=== PATIENT | male | born 1950 | race Caucasian/White ===

== ENCOUNTER 2016-08-31 01:41 | Inpatient (IN) | payer BC ==
[~2016-08-31] VITALS: Ht 182.9 cm; Wt 110.0 kg
[~2016-08-31 01:41] MED LIST: AMLO-218 PO; CLON-379 PO; CLON1TAB3 PO; DOXA2TAB PO; FENO134C PO; FURO20TA3 PO; MECL12.574 PO; METF-382 PO; OLME40TA14 PO; PHEN100C PO; SITA100T8 PO; TEN25 PO; VALS160T20 PO
[2016-08-31] MEDS ORDERED: ASPIRIN 325 MG TAB PO STA (06:30)
[2016-08-31 07:05] VITALS: TEMP 97.8
--- NOTE | 2016-08-31 07:10 | RADRPT ---
PROCEDURE: XR Chest. CLINICAL INDICATION: Chest pain TECHNIQUE: Single view of the chest COMPARISON: Chest radiograph June 07, 2015 FINDINGS: There is mild left basilar atelectasis without focal consolidation. The heart size is normal. There is no pleural effusion. There is no pneumothorax. There is no acute osseous abnormality. IMPRESSION: 1. Mild left basilar atelectasis without focal consolidation. RPTAT: UU .Neno Storm MD, MD Date Time Electronically viewed and signed by .Neno Storm MD, MD on 08/31/2016 07:10 .K/
[2016-08-31 07:46] LABS: INR 0.93; PROTIME 12.5 Sec (12.2-14.2)
[2016-08-31 07:46] LABS: CHLORIDE 101 mmol/L (97-110)
[2016-08-31 07:47] LABS: ALBUMIN 4.2 g/dl (3.3-4.9); SODIUM 146 mmol/L (135-144)
[2016-08-31 07:47] LABS: PARTIAL THROMBOPLASTIN TIME 32.3 Sec (25.0-35.0)
[2016-08-31 07:50] LABS: ALANINE AMINOTRANSFERASE 26 IU/L (13-69); ALBUMIN/GLOBULIN RATIO 1.23; ALKALINE PHOSPHATASE 83 IU/L (42-121); ANION GAP 18 (8-16); ASPARTATE AMINO TRANSFERASE 18 IU/L (15-46); BILIRUBIN,INDIRECT 0.1 mg/dl (0-1.1); BILIRUBIN,TOTAL 0.1 mg/dl (0.2-1.3); BLOOD UREA NITROGEN 16 mg/dl (7-20); CARBON DIOXIDE 31 mmol/L (21-31); CREATININE 0.85 mg/dl (0.61-1.24); GLUCOSE 135 mg/dl (70-220); TOTAL PROTEIN 7.6 g/dl (6.1-8.1)
[2016-08-31 07:51] LABS: CALCIUM 9.2 mg/dl (8.4-10.2)
[2016-08-31 07:57] LABS: HEMATOCRIT 46.8 % (42.0-52.0); HEMOGLOBIN 15.9 g/dl (14.0-18.0); MEAN CORPUSCULAR HEMOGLOBIN 28.8 pg (29.0-33.0); MEAN CORPUSCULAR VOLUME 84.8 fl (82.0-101.0); PLATELET COUNT 262 10^3/UL (140-440); RED BLOOD COUNT 5.52 10^6/ul (4.70-6.10); RED CELL DISTRIBUTION WIDTH 12.9 % (11.5-14.5); UNCORRECTED WBC 7.3 10^3/ul (4.8-10.8); WHITE BLOOD COUNT 7.3 10^3/ul (4.8-10.8)
[2016-08-31 07:58] LABS: EOSINOPHILS % 3.6 % (0.0-7.0); LYMPHOCYTES % 32.4 % (15.0-51.0); MEAN PLATELET VOLUME 8.9 fl (7.4-10.4); MONOCYTES % 6.6 % (0.0-11.0); NEUTROPHILS % 56.8 % (39.0-77.0)
[2016-08-31 07:59] LABS: BASOPHILS % 0.5 % (0.0-2.0); EOSINOPHILS # 0.3 10^3/ul (0.0-0.5); LYMPHOCYTES # 2.4 10^3/ul (0.8-2.9); MONOCYTE # 0.5 10^3/ul (0.3-0.9); NEUTROPHIL # 4.1 10^3/ul (1.6-7.5)
[2016-08-31 08:02] LABS: TROPONIN-I < 0.012 ng/ml (0.00-0.12)
--- NOTE | 2016-08-31 08:12 | ERA ---
ER Documentation Chief Complaint Date/Time DATE: 08/31/16 TIME: 08:10 Chief Complaint pressure like chest pain radaiting to throat and left arm HPI 66-year-old male presents to the emergency department with his family complaining of discomfort in his chest and throat that began spontaneously and was non-provoked. It radiated towards his left arm. He described no palpitations, shortness of breath, fevers chills or hemoptysis associated with the pain. The pain was nonexertional and occurred at rest. Currently he reports the pain is mild to moderate. ROS All systems reviewed and are negative except as per history of present illness. Medications Home Meds Active Scripts Meclizine Hcl* (Antivert*) 12.5 Mg Tab, 12.5 MG PO Q6H Y for DIZZINESS, #20 TAB Prov:SHAD VASQUEZ MD 06/02/16 Olmesartan Medoxomil (Benicar) 40 Mg Tablet, 40 MG PO DAILY, #30 TAB Prov:LAURA LEÓN DO 01/16/16 Amlodipine Besylate* (Norvasc*) 10 Mg Tablet, 10 MG PO DAILY, #30 TAB Prov:LUARA LEÓN DO 01/16/16 Reported Medications Fenofibrate, Micronized (Fenofibrate) 134 Mg Capsule, 134 MG PO DAILY, CAP 01/16/16 Furosemide* (Furosemide*) 20 Mg Tablet, 20 MG PO DAILY, #60 TAB 01/16/16 Doxazosin Mesylate* (Doxazosin Mesylate*) 2 Mg Tablet, 2 MG PO HS, TAB 01/16/16 Metformin Hcl* (Metformin Hcl*) 500 Mg Tablet, 500 MG PO WITH BREAKFAST DINNE, # 30 TAB 01/16/16 Sitagliptin* (Januvia*) 100 Mg Tablet, 100 MG PO DAILY, #30 TAB 01/16/16 Clonazepam* (Clonazepam*) 1 Mg Tablet, 1 MG PO DAILY Y for ANXIETY, TAB 01/16/16 Phenytoin* Sodium Extended (Dilantin*) 100 Mg Capsule, 100 MG PO TID, CAP 02/22/14 Atenolol (Tenormin) 25 Mg Tab, 25 MG PO, TAB 02/22/14 Clonidine Hcl* (Clonidine Hcl*) 0.1 Mg Tab, 0.1 MG PO Q8, TAB 02/22/14 Valsartan* (Diovan*) 160 Mg Tablet, 160 MG PO DAILY, TAB 02/22/14 Allergies Allergies: Coded Allergies: No Known Allergy (Unverified , 01/16/16) PMhx/Soc History of Surgery: Yes (cholesystectomy) Anesthesia Reaction: No Hx Neurological Disorder: No Hx Respiratory Disorders: No Hx Cardiac Disorders: Yes (htn, hyperlipidemia) Hx Psychiatric Problems: No Hx Miscellaneous Medical Probl: Yes (HTN, DM, SEIZURE) Hx Alcohol Use: No Hx Substance Use: No Hx Tobacco Use: Yes (1 pack/day) Smoking Status: Current every day smoker FmHx Noncontributory for chief complaint Physical Exam Vitals Vital Signs Date Time Temp Pulse Resp B/P Pulse Ox O2 Delivery O2 Flow Rate FiO2 08/31/16 07:05 97.8 72 18 178/100 97 Room Air 08/31/16 06:50 Nasal Cannula 2 08/31/16 01:50 97.8 89 20 147/89 97 Physical Exam GENERAL: The patient is well developed and appropriate for usual state of health in no apparent distress HEENT: Pupils equal, round, and reactive to light. EOMI. There is no scleral icterus. NECK: C-spine is soft and supple, there is no meningismus. There is no cervical lymphadenopathy. LUNGS: Clear to auscultation bilaterally. There are no rales, wheezes or rhonchi. HEART: Regular rate and rhythm, no murmurs, clicks, rubs or gallops. ABDOMEN: Soft, non-tender, non-distended. There are bowel sounds in all four quadrants. No rebound or guarding. EXTREMITIES: There is no peripheral cyanosis or edema. No focal swelling or erythema. NEURO: The patient moves all four extremities with 5/5 strength. Cranial nerves II - XII are intact. Normal gait. Alert and oriented SKIN: There is no apparent rash or petechiae. HEME/LYMPHATIC: There is no evidence of excessive bruising or lymphedema. PSYCHIATRIC: The patient does not appear anxious or depressed. Result Diagram: 08/31/16 0650 08/31/16 0650 Results 24 hrs Laboratory Tests Test 08/31/16 06:50 08/31/16 06:56 Alanine Aminotransferase (ALT/SGPT) 26IU/L Albumin 4.2g/dl Albumin/Globulin Ratio 1.23 Alkaline Phosphatase 83IU/L Anion Gap 18 Aspartate Amino Transf (AST/SGOT) 18IU/L Basophils # 0.010^3/ul Basophils % 0.5% Blood Urea Nitrogen 16mg/dl Calcium Level 9.2mg/dl Carbon Dioxide Level 31mmol/L Chloride Level 101mmol/L Creatinine 0.85mg/dl Direct Bilirubin 0.00mg/dl Eosinophils # 0.310^3/ul Eosinophils % 3.6% Globulin 3.40g/dl Glucose Level 135mg/dl Hematocrit 46.8% Hemoglobin 15.9g/dl Indirect Bilirubin 0.1mg/dl Lymphocytes # 2.410^3/ul Lymphocytes % 32.4% Mean Corpuscular Hemoglobin 28.8pg Mean Corpuscular Hemoglobin Concent 34.0g/dl Mean Corpuscular Volume 84.8fl Mean Platelet Volume 8.9fl Monocytes # 0.510^3/ul Monocytes % 6.6% Neutrophils # 4.110^3/ul Neutrophils % 56.8% Nucleated Red Blood Cells # 0.010^3/ul Nucleated Red Blood Cells % 0.0/100WBC Platelet Count 62584^3/UL Potassium Level 4.0mmol/L Red Blood Count 5.5210^6/ul Red Cell Distribution Width 12.9% Sodium Level 146mmol/L Total Bilirubin 0.1mg/dl Total Protein 7.6g/dl Troponin I < 0.012ng/ml White Blood Count 7.310^3/ul Activated Partial Thromboplast Time 32.3Sec INR International Normalized Ratio 0.93 Prothrombin Time 12.5Sec Prothrombin Time Ratio 1.0 Current Medications Medications (Trade) Dose Ordered Sig/Yaya Route PRN Reason Start Time Stop Time Status Last Admin Dose Admin Aspirin (Aspirin) 325 mg ONCE STAT PO 08/31/16 06:30 08/31/16 06:31 DC 08/31/16 06:53 Procedures/MDM Patient was taken to a room, seen and evaluated. Comfort measures were initiated. Diagnostic tests were ordered and reviewed. 3 LEAD RHYTHM STRIP: Normal sinus rhythm without ectopy EK lead EKG reviewed by myself: Normal Sinus Rhythm Normal Caroleen and intervals No ST elevation, depression, or T wave inversion Impression: Normal EKG RADIOLOGY: reviewed with the radiologist CONSULTATION: IPA hospitalist was notified for admission REEVALUATION: Patient remained comfortable. His blood pressure remained elevated and this was treated with his normal medications. MEDICAL DECISION MAKING: Patient presents with chest pain of uncertain etiology. Differential diagnosis considered includes acute myocardial infarction , pulmonary embolism, as well as vascular and pulmonary concerns. I have reviewed the patient's clinical risk factors, EKG, lab studies and imaging. At this time, patient shows no clinical evidence of significant thoracic concerns. However, he has significant risk factors for heart disease including high blood pressure and diabetes. Given these high risk factors, patient will require admission to the hospital for observation to formally rule out myocardial infarction. Departure Diagnosis: Primary Impression: Chest pain Additional Impression: Hypertension Condition: JOSESITO Yousif Aug 31, 2016 08:12
[2016-08-31] MEDS ORDERED: ATENOLOL 50 MG TAB PO ONE (08:30)
[2016-08-31] MEDS ORDERED: LORA10TA3 PO (10:15)
[2016-08-31] MEDS ORDERED: ASPI-664 PO (10:15)
[2016-08-31] MEDS ORDERED: TAMS-14 PO (10:15)
[2016-08-31] MEDS ORDERED: AMLO-147 PO (10:16)
[2016-08-31] MEDS ORDERED: ATEN-51 PO (10:16)
[2016-08-31] MEDS ORDERED: HYD25 PO (10:17)
[2016-08-31] MEDS ORDERED: CLON0.5T4 PO (10:18)
[2016-08-31] MEDS ORDERED: MAG PO (10:19)
[2016-08-31] MEDS ORDERED: PHEN100C PO (10:19)
[2016-08-31] MEDS ORDERED: ERGO500037 PO (10:20)
[2016-08-31] MEDS ORDERED: CLON0.2T5 PO (10:21)
[2016-08-31] MEDS ORDERED: GLYB2.5T2 PO (10:21)
[2016-08-31] MEDS ORDERED: AMIO200T2 PO (10:22)
[2016-08-31] MEDS ORDERED: GLUCOSE GEL 15 GRAM TUBE PO PRN ×2 (11:30)
[2016-08-31] MEDS ORDERED: NACL 0.9% 3 ML SYG IV SCH (11:30)
[2016-08-31] MEDS ORDERED: DEXTROSE 50% 50 ML SYRINGE IV PRN ×2 (11:30)
[2016-08-31] MEDS ORDERED: clonAZEPAM 0.5 MG TAB PO PRN (11:30)
[2016-08-31] MEDS ORDERED: morphine 2 MG INJ IV PRN (11:30)
[2016-08-31] MEDS ORDERED: ONDANSETRON 4 MG INJ IV PRN (11:30)
[2016-08-31] MEDS ORDERED: ACETAMINOPHEN 325 MG TAB PO PRN (11:30)
[2016-08-31] MEDS ORDERED: GLUCAGON 1 MG INJ IM PRN (11:30)
[2016-08-31] MEDS ORDERED: GLUCOSE GEL 15 GRAM TUBE BUCCAL PRN (11:30)
[2016-08-31] MEDS: INSULIN ASPART [NOVOLOG] 3 ML PEN SC SCH ×3 (12:00→21:00)
[2016-08-31 12:48] LABS: CREATINE KINASE 75 IU/L (23-200)
[2016-08-31 12:59] LABS: CK-MB 1.16 ng/ml (0.0-2.4)
[2016-08-31 13:04] LABS: TROPONIN-I < 0.012 ng/ml (0.00-0.12)
--- NOTE | 2016-08-31 13:51 | HP ---
Date/Time of Note Date/Time of Note DATE: 08/31/16 TIME: 13:49 Assessment/Plan VTE Prophylaxis VTE Prophylaxis Intervention: LMWH Lines/Catheters IV [facility] Type (from [email or web address] Saline Lock Assessment/Plan Chief Complaint/Hosp Course 1) chest pain - rule out acute coronary syndrome - 2D echocardiogram - consult cardiology 2) diabetes - monitor blood sugar Problems: HPI/ROS Admit Date/Time Admit Date/Time Hx of Present Illness Patient with hypertension, hypercholesterolemia, diabetes mellitus comes in with chest pain that started one day prior. Patient states he has been having upper respiratory symptoms with sore throat and that the symptoms seemed to travel to his chest despite starting antibiotics per his primary care physician. Patient was concerned and so he came into the emergency room. PMH/Family/Social Past Medical History Medical History: diabetes, high cholesterol, hypertension Social History Alcohol Use: rarely Smoking Status: Current every day smoker Exam/Review of Systems Vital Signs Vitals Vital Signs Date Time Temp Pulse Resp B/P Pulse Ox O2 Delivery O2 Flow Rate FiO2 08/31/16 12:00 61 13 158/89 Room Air 08/31/16 09:00 98 08/31/16 07:05 97.8 08/31/16 06:50 2 Exam Constitutional: well developed Head: atraumatic, normocephalic Neck: supple Respiratory: clear to auscultation Cardiovascular: regular rate and rhythm Gastrointestinal: non-tender, soft Labs Result Diagram: 08/31/16 0650 08/31/16 0650 Medications Medications Current Medications Amiodarone HCl (Cordarone) 200 mg BID PO ; Start 08/31/16 at 21:00 Amlodipine Besylate (Norvasc) 10 mg DAILY PO ; Start 09/01/16 at 09:00 Atenolol (Tenormin) 25 mg BID PO ; Start 08/31/16 at 21:00 Clonazepam (Klonopin) 0.5 mg DAILY PRN PO ANXIETY; Start 08/31/16 at 11:30 Clonidine (Catapres) 0.2 mg DAILY PRN PO ELEVATED BLOOD PRESSURE; Start at 11:30; Status UNV Ergocalciferol (Drisdol) 50,000 unit DAILY PO ; Start 09/01/16 at 09:00; Status UNV Hydrochlorothiazide (Hydrochlorothiazide) 25 mg DAILY PO ; Start 09/01/16 at 09: 00 Loratadine (Claritin) 10 mg DAILY PO ; Start 09/01/16 at 09:00 Phenytoin (Dilantin) 100 mg QID PO ; Start 08/31/16 at 13:00 Tamsulosin HCl (Flomax) 0.4 mg QHS PO ; Start 08/31/16 at 21:00 Ondansetron HCl (Zofran Inj) 4 mg Q6H PRN IV NAUSEA AND/OR VOMITING; Start 08/31 at 11:30 Aspirin (Aspirin) 81 mg DAILY PO ; Start 09/01/16 at 09:00 Acetaminophen (Tylenol Tab) 650 mg Q6H PRN PO PAIN LEVEL 1-3 OR FEVER; Start at 11:30 Morphine Sulfate (morphine) 2 mg Q4H PRN IV PAIN LEVEL 7-10; Start 08/31/16 at 11:30 Famotidine (Pepcid Iv) 20 mg Q12 IV ; Start 08/31/16 at 21:00 Enoxaparin Sodium (Lovenox) 30 mg DAILY SC ; Start 09/01/16 at 09:00 Miscellaneous Information 1 ea NOTE XX ; Start 08/31/16 at 11:30 Glucose (Glutose) 15 gm Q15M PRN PO DECREASED GLUCOSE; Start 08/31/16 at 11:30 Glucose (Glutose) 22.5 gm Q15M PRN PO DECREASED GLUCOSE; Start 08/31/16 at 11:30 Dextrose (D50w Syringe) 25 ml Q15M PRN IV DECREASED GLUCOSE; Start 08/31/16 at 11:30 Dextrose (D50w Syringe) 50 ml Q15M PRN IV DECREASED GLUCOSE; Start 08/31/16 at 11:30 Glucagon (Glucagen) 1 mg Q15M PRN IM DECREASED GLUCOSE; Start 08/31/16 at 11:30 Glucose (Glutose) 15 gm Q15M PRN BUCCAL DECREASED GLUCOSE; Start 08/31/16 at 11: 30 COOKIE MEYER Aug 31, 2016 13:51
[2016-08-31] MEDS: PHENYTOIN 100 MG CAP PO SCH ×3 (16:26→21:44)
[2016-08-31 19:56] VITALS: BP 160/80; PULSE 66; RESP 20
[2016-08-31 20:00] VITALS: BP 164/83; RESP 19
[2016-08-31 20:01] VITALS: Ht 182.9 cm; Wt 110.0 kg
[2016-08-31 20:10] VITALS: PULSE 63
[2016-08-31] MEDS: TAMSULOSIN (SR) 0.4 MG CAP PO SCH (20:25)
[2016-08-31] MEDS: AMIODARONE 200 MG TAB PO SCH (20:25)
[2016-08-31] MEDS: FAMOTIDINE 20 MG INJ IV SCH (20:25)
[2016-08-31] MEDS: ATENOLOL 25 MG TAB PO SCH (20:26)
[2016-08-31] MEDS: metFORMIN 500 MG TAB PO SCH (20:32)
[2016-08-31] MEDS ORDERED: glyBURIDE 2.5 MG TAB PO SCH (21:00)
[2016-08-31 21:53] LABS: CK-MB 0.95 ng/ml (0.0-2.4)
[2016-08-31 21:55] LABS: TROPONIN-I 0.014 ng/ml (0.00-0.12)
[2016-09-01] VITALS (14 sets, daily range): BP systolic 131–166; BP diastolic 63–85; PULSE 54–68; RESP 16–19
[2016-09-01 06:46] LABS: BASOPHILS % 0.6 % (0.0-2.0); EOSINOPHILS # 0.2 10^3/ul (0.0-0.5); EOSINOPHILS % 2.9 % (0.0-7.0); HEMATOCRIT 46.1 % (42.0-52.0); HEMOGLOBIN 15.6 g/dl (14.0-18.0); LYMPHOCYTES # 1.6 10^3/ul (0.8-2.9); LYMPHOCYTES % 23.4 % (15.0-51.0); MEAN CORPUSCULAR HEMOGLOBIN 29.2 pg (29.0-33.0); MEAN CORPUSCULAR HGB CONC 33.7 g/dl (32.0-37.0); MEAN CORPUSCULAR VOLUME 86.6 fl (82.0-101.0); MEAN PLATELET VOLUME 7.2 fl (7.4-10.4); MONOCYTE # 0.4 10^3/ul (0.3-0.9); MONOCYTES % 6.3 % (0.0-11.0); NEUTROPHIL # 4.5 10^3/ul (1.6-7.5); NEUTROPHILS % 66.8 % (39.0-77.0); PLATELET COUNT 243 10^3/UL (140-440); RED BLOOD COUNT 5.33 10^6/ul (4.70-6.10); RED CELL DISTRIBUTION WIDTH 13.8 % (11.5-14.5); UNCORRECTED WBC 6.7 10^3/ul (4.8-10.8); WHITE BLOOD COUNT 6.7 10^3/ul (4.8-10.8)
[2016-09-01 06:48] LABS: CONDITION 1
[2016-09-01] MEDS: INSULIN ASPART [NOVOLOG] 3 ML PEN SC SCH ×5 (07:25→21:00)
[2016-09-01 07:38] LABS: ALBUMIN 3.8 g/dl (3.3-4.9)
[2016-09-01 07:39] LABS: POTASSIUM 3.9 mmol/L (3.5-5.1)
[2016-09-01 07:41] LABS: ALBUMIN/GLOBULIN RATIO 1.15; BILIRUBIN,INDIRECT 0.3 mg/dl (0-1.1); BILIRUBIN,TOTAL 0.3 mg/dl (0.2-1.3); CREATININE 0.81 mg/dl (0.61-1.24); TOTAL PROTEIN 7.1 g/dl (6.1-8.1)
[2016-09-01 07:42] LABS: CALCIUM 8.9 mg/dl (8.4-10.2); CHOL/HDL RATIO 9.2 RATIO
[2016-09-01] MEDS ORDERED: ERGOCALCIFEROL 50,000 UNIT CAP PO SCH (09:00)
[2016-09-01] MEDS ORDERED: ASPIRIN (EC) 81 MG TAB PO SCH (09:00)
[2016-09-01] MEDS: PHENYTOIN 100 MG CAP PO SCH ×4 (09:12→21:24)
[2016-09-01] MEDS: HYDROCHLOROTHIAZIDE 25 MG TAB PO SCH (09:13)
[2016-09-01] MEDS: AMLODIPINE 10 MG TAB PO SCH (09:13)
[2016-09-01] MEDS: ASPIRIN 81 MG TAB PO SCH (09:14)
[2016-09-01] MEDS: AMIODARONE 200 MG TAB PO SCH ×2 (09:14→21:23)
[2016-09-01] MEDS: LORATADINE 10 MG TAB PO SCH (09:14)
[2016-09-01] MEDS: ATENOLOL 25 MG TAB PO SCH ×2 (09:14→21:24)
[2016-09-01] MEDS: FAMOTIDINE 20 MG INJ IV SCH (09:16)
[2016-09-01] MEDS: ENOXAPARIN 30 MG/0.3 ML SYG SC SCH (09:16)
[2016-09-01] MEDS: metFORMIN 500 MG TAB PO SCH ×2 (09:20→17:32)
--- NOTE | 2016-09-01 11:25 | PN ---
Date/Time of Note Date/Time of Note DATE: 09/01/16 TIME: 11:24 Assessment/Plan VTE Prophylaxis VTE Prophylaxis Intervention: LMWH Lines/Catheters IV [facility]ter Type (from [facility]): Saline Lock Urinary Cath still in place: No Assessment/Plan Chief Complaint/Hosp Course 1) chest pain - acute coronary syndrome ruled out by negative troponins - 2D echocardiogram - await consult cardiology 2) diabetes - monitor blood sugar Problems: Subjective 24 Hr Interval Summary Free Text/Dictation Patient denies any further chest pain Exam/Review of Systems Vital Signs Vitals Vital Signs Date Time Temp Pulse Resp B/P Pulse Ox O2 Delivery O2 Flow Rate FiO2 09/01/16 11:10 97.8 67 18 140/73 97 09/01/16 05:10 Room Air 08/31/16 06:50 2 Intake and Output 08/31/16 08/31/16 09/01/16 15:00 23:00 07:00 Intake Total 300 ml Output Total 500 ml Balance -200 ml Exam Constitutional: well developed Head: atraumatic, normocephalic Neck: supple Respiratory: clear to auscultation Cardiovascular: regular rate and rhythm Gastrointestinal: non-tender, soft Results Result Diagram: 09/01/16 0606 09/01/16 0606 Results 24 hrs Laboratory Tests Test 08/31/16 12:30 08/31/16 20:23 08/31/16 20:59 09/01/16 06:06 Creatine Kinase 75 68 Creatine Kinase Index 1.5 1.4 Creatinine Kinase MB (Mass) 1.16 0.95 Troponin I < 0.012 0.014 Bedside Glucose 120 B-Type Natriuretic Peptide 171 H Alanine Aminotransferase (ALT/SGPT) 29 Albumin 3.8 Albumin/Globulin Ratio 1.15 Alkaline Phosphatase 77 Anion Gap 14 Aspartate Amino Transf (AST/SGOT) 19 Basophils # 0.0 Basophils % 0.6 Blood Morphology Comment Blood Urea Nitrogen 14 Calcium Level 8.9 Carbon Dioxide Level 29 Chloride Level 102 Cholesterol Level 232 H Cholesterol/HDL Ratio 9.2 Creatinine 0.81 Direct Bilirubin 0.00 Eosinophils # 0.2 Eosinophils % 2.9 Globulin 3.30 H Glucose Level 145 HDL Cholesterol 25 L Hematocrit 46.1 Hemoglobin 15.6 Hemoglobin A1c 7.3 H Indirect Bilirubin 0.3 LDL Cholesterol, Calculated 167 Lymphocytes # 1.6 Lymphocytes % 23.4 Mean Corpuscular Hemoglobin 29.2 Mean Corpuscular Hemoglobin Concent 33.7 Mean Corpuscular Volume 86.6 Mean Platelet Volume 7.2 L Monocytes # 0.4 Monocytes % 6.3 Neutrophils # 4.5 Neutrophils % 66.8 Nucleated Red Blood Cells # 0.0 Nucleated Red Blood Cells % 0.0 Platelet Count 243 Potassium Level 3.9 Red Blood Count 5.33 Red Cell Distribution Width 13.8 Sodium Level 141 Total Bilirubin 0.3 Total Protein 7.1 Triglycerides Level 198 H White Blood Count 6.7 Test 09/01/16 07:21 Bedside Glucose 144 Medications Medications Current Medications Amiodarone HCl (Cordarone) 200 mg BID PO Last administered on 09/01/16 09:14; Admin Dose 200 MG; Start 08/31/16 at 21:00 Amlodipine Besylate (Norvasc) 10 mg DAILY PO Last administered on 09/01/16 09: 13; Admin Dose 10 MG; Start 09/01/16 at 09:00 Atenolol (Tenormin) 25 mg BID PO Last administered on 09/01/16 09:14; Admin Dose 25 MG; Start 08/31/16 at 21:00 Clonazepam (Klonopin) 0.5 mg DAILY PRN PO ANXIETY; Start 08/31/16 at 11:30 Hydrochlorothiazide (Hydrochlorothiazide) 25 mg DAILY PO Last administered on 09:13; Admin Dose 25 MG; Start 09/01/16 at 09:00 Loratadine (Claritin) 10 mg DAILY PO Last administered on 09/01/16 09:14; Admin Dose 10 MG; Start 09/01/16 at 09:00 Phenytoin (Dilantin) 100 mg QID PO Last administered on 09/01/16 09:12; Admin Dose 100 MG; Start 08/31/16 at 13:00 Tamsulosin HCl (Flomax) 0.4 mg QHS PO Last administered on 08/31/16 20:25; Admin Dose 0.4 MG; Start 08/31/16 at 21:00 Ondansetron HCl (Zofran Inj) 4 mg Q6H PRN IV NAUSEA AND/OR VOMITING; Start 08/31 at 11:30 Aspirin (Aspirin) 81 mg DAILY PO Last administered on 09/01/16 09:14; Admin Dose 81 MG; Start 09/01/16 at 09:00 Acetaminophen (Tylenol Tab) 650 mg Q6H PRN PO PAIN LEVEL 1-3 OR FEVER; Start at 11:30 Morphine Sulfate (morphine) 2 mg Q4H PRN IV PAIN LEVEL 7-10; Start 08/31/16 at 11:30 Famotidine (Pepcid Iv) 20 mg Q12 IV Last administered on 09/01/16 09:16; Admin Dose 20 MG; Start 08/31/16 at 21:00 Enoxaparin Sodium (Lovenox) 30 mg DAILY SC Last administered on 09/01/16 09:16 ; Admin Dose 30 MG; Start 09/01/16 at 09:00 Miscellaneous Information 1 ea NOTE XX ; Start 08/31/16 at 11:30 Glucose (Glutose) 15 gm Q15M PRN PO DECREASED GLUCOSE; Start 08/31/16 at 11:30 Glucose (Glutose) 22.5 gm Q15M PRN PO DECREASED GLUCOSE; Start 08/31/16 at 11:30 Dextrose (D50w Syringe) 25 ml Q15M PRN IV DECREASED GLUCOSE; Start 08/31/16 at 11:30 Dextrose (D50w Syringe) 50 ml Q15M PRN IV DECREASED GLUCOSE; Start 08/31/16 at 11:30 Glucagon (Glucagen) 1 mg Q15M PRN IM DECREASED GLUCOSE; Start 08/31/16 at 11:30 Glucose (Glutose) 15 gm Q15M PRN BUCCAL DECREASED GLUCOSE; Start 08/31/16 at 11: 30 Clonidine (Catapres) 0.2 mg DAILY PO Last administered on 09/01/16 09:13; Admin Dose 0.2 MG; Start 08/31/16 at 18:30 COOKIE MEYER Sep 01, 2016 11:25
--- NOTE | 2016-09-01 19:06 | CONS ---
DATE OF ADMISSION: 08/31/2016 DATE OF CONSULTATION: 08/31/2016 REASON FOR CONSULTATION: Chest pain. HISTORY OF PRESENT ILLNESS: The patient is a 66-year-old gentleman who complains of epigastric ches t pain radiating all the way to the throat. Denies any shortness of breath, dizziness or syncope, b ut does complain of occasional dizziness and palpitation. Denies any nausea or vomiting. Denies fe fernie, chills, or rigors. No prior history of myocardial infarction. PAST MEDICAL HISTORY: Significant for: 1. Obesity. 2. Hypertension. 3. Dyslipidemia. 4. Diabetes mellitus. ALLERGIES: NONE. CURRENT MEDICATIONS: 1. Norvasc. 2. Hydrochlorothiazide. 3. Aspirin. 4. Lovenox. 5. Amiodarone. 6. Atenolol. 7. Tamsulosin. 8. Famotidine. 9. Clonidine. 10. Metformin. 11. Phenytoin. 12. Insulin. SOCIAL HISTORY: Denies any smoking, alcohol, or recreational drugs. REVIEW OF SYSTEMS: Unremarkable except as mentioned in the HPI. PHYSICAL EXAMINATION: VITAL SIGNS: Temperature is 97.6, heart rate of 62, blood pressure 160/80 mmHg, breathing at 18 and saturating 94% on room air. GENERAL: Awake, alert, and oriented, in no apparent distress. NECK: No JVD or carotid bruit. DIAGNOSTIC DATA: EKG shows normal sinus rhythm with a ventricular rate of 88 beats per minute with normal ID, normal QRS and normal QT intervals with no acute ST or T-wave changes. Chest x-ray shows no congestion or infiltrates. LABORATORY DATA: WBC 6.7, hemoglobin is 15.6, hematocrit 46 with a platelet of 243. BNP 171. Trop onin x3 is negative. Triglyceride 198. Total cholesterol 232, LDL 167, HDL 25. ASSESSMENT AND PLAN: A 66-year-old gentleman with atypical chest pain with significant cardiac risk factors. RECOMMENDATIONS: 1. Echocardiogram. 2. Recommend Lexiscan to rule out for reversible ischemia. 3. Continue atenolol. 4. Continue amlodipine, hydrochlorothiazide and clonidine for blood pressure. 5. Continue amiodarone. 6. Continue insulin. 7. Further recommendation after review of the echocardiogram and stress test. Dictated By: KAYLYN KOEHLER MD SR/NTS Conf#: [id number] DID#: [id number]
--- NOTE | 2016-09-01 19:24 | RADRPT ---
Echocardiogram Report Patient Name: MARILOU JUSTIN Gender: Male Date: 1950 Study Date: 01-Sep-2016 Licensed Direct Entry Midwife: RAFAEL Location: I Ref. Physician: BILL HUTTON Quality: Adequate Procedures: Transthoracic echocardiogram with complete 2D, M-Mode, and doppler examination. Indications: Chest Pain. 2D/M Mode Doppler Measurement Value Normal Ranges Measurement Value Normal Ranges AoR Diam MM 3.7 cm AV Peak Paulo 1.3 m/sec LVIDd 2D 5.2 3.5 - 5.6 cm AV Peak PG 7.0 mmHg LVIDs 2D 4.2 2.1 - 4.1 cm AI Peak PG 74.0 mmHg LVPWd 2D 0.8 0.6 - 1.1 cm AI Peak Paulo 4.3 m/sec IVSd 2D 1.2 0.6 - 1.1 cm AI PHT 705.0 msec EDV 2D 128.8 cm3 LVOT Peak Paulo 0.8 m/sec ESV 2D 72.8 cm3 LVOT Peak PG 2.8 mmHg LA Dimen 2D 3.8 2.3 - 4.0 cm MV E Peak Paulo 0.9 m/sec MV A Peak Paulo 1.2 m/sec MV E/A 0.8 MV Decel Time 235 msec MV Decel Mccracken 4 MV E/A 0.8 TR Peak Paulo 2.3 m/sec TR Peak PG 21.3 mmHg PV Peak Paulo 0.9 m/sec PV Peak PG 3.0 mmHg RVSP 24.3 mmHg Findings Left Ventricle: Normal left ventricular systolic function. Normal left ventricular cavity size. Mild hypertrophy of the basal septum. Ejection fraction is visually estimated at 50 %. Tissue Doppler/Mitral Doppler indices are within normal limits. Right Ventricle: Normal right ventricular size. Normal right ventricular systolic function. Left Atrium: The left atrium is normal in size. Right Atrium: The right atrium is normal in size. Atrial Septum: Normal atrial septum. Mitral Valve: Normal appearance of the mitral valve. Trace mitral regurgitation. Aortic Valve: No hemodynamically significant aortic stenosis by doppler. Aortic sclerosis without stenosis. Mild aortic valve regurgitation. Tricuspid Valve: Normal appearance of the tricuspid valve. Estimated peak PA systolic pressure 24 mmHg. There is trace to mild tricuspid regurgitation. Pulmonic Valve: Normal pulmonic valve appearance. No evidence of pulmonic regurgitation. Pericardium: Normal pericardium with no significant pericardial effusion. Aorta: Normal aortic root. IVC: Normal size and normal respiratory collapse consistent with normal right atrial pressure. Pulmonary Artery: Normal pulmonary artery size. Conclusions 1.Normal left ventricular systolic function. Normal left ventricular cavity size. Mild hypertrophy of the basal septum. Ejection fraction is visually estimated at 50 %. Tissue Doppler/Mitral Doppler indices are within normal limits. 2.Normal appearance of the mitral valve. Trace mitral regurgitation. 3.No hemodynamically significant aortic stenosis by doppler. Aortic sclerosis without stenosis. Mild aortic valve regurgitation. 4.Normal appearance of the tricuspid valve. Estimated peak PA systolic pressure 24 mmHg. There is trace to mild tricuspid regurgitation. 5.Normal pericardium with no significant pericardial effusion. Electronically Signed By: Bill Hutton 01-Sep-2016 19:24:04 -0800 Patient Name: MARILOU JUSTIN Study Date: 01-Sep-2016 [id number]
[2016-09-01] MEDS: FAMOTIDINE 20 MG TAB PO SCH (21:24)
[2016-09-01] MEDS: TAMSULOSIN (SR) 0.4 MG CAP PO SCH (21:24)
[2016-09-02] VITALS (12 sets, daily range): BP systolic 141–170; BP diastolic 72–90; PULSE 58–70; RESP 17–20
[2016-09-02] MEDS: INSULIN ASPART [NOVOLOG] 3 ML PEN SC SCH ×5 (07:55→21:00)
[2016-09-02] MEDS: ATENOLOL 25 MG TAB PO SCH ×2 (08:07→21:44)
[2016-09-02] MEDS: metFORMIN 500 MG TAB PO SCH ×2 (08:07→17:06)
[2016-09-02] MEDS: ASPIRIN 81 MG TAB PO SCH (08:07)
[2016-09-02] MEDS: PHENYTOIN 100 MG CAP PO SCH ×5 (08:08→21:43)
[2016-09-02] MEDS: AMLODIPINE 10 MG TAB PO SCH (08:08)
[2016-09-02] MEDS: AMIODARONE 200 MG TAB PO SCH ×2 (08:08→21:43)
[2016-09-02] MEDS: LORATADINE 10 MG TAB PO SCH (08:08)
[2016-09-02] MEDS: HYDROCHLOROTHIAZIDE 25 MG TAB PO SCH (08:08)
[2016-09-02] MEDS: FAMOTIDINE 20 MG TAB PO SCH (08:09)
[2016-09-02] MEDS: ENOXAPARIN 30 MG/0.3 ML SYG SC SCH (08:10)
[2016-09-02] MEDS ORDERED: REGADENOSON 0.4 MG/5 ML SYG ONE (11:25)
--- NOTE | 2016-09-02 11:52 | CONS ---
Date/Time of Note Date/Time of Note DATE: 09/02/16 TIME: 11:47 Assessment/Plan Assessment/Plan Chief Complaint/Hosp Course Imp: 1.Chest pain-negative troponin x 3 2.HTN 3.HL 4.DM 5. H/O cardiac arrythmia on amio Recc: -Tele -serial ecg's -Continue norvasc/clonidine -Continue asa -Continue amio -stress test Problems: Consultation Date/Type/Reason Admit Date/Time Aug 31, 2016 at 08:19 Initial Consult Date 09/01/16 Type of Consultation: Cardiology Reason for Consultation Chest pain Referring Provider: BOBBY DE LA CRUZ MD Exam/Review of Systems Vital Signs Vitals Vital Signs Date Time Temp Pulse Resp B/P Pulse Ox O2 Delivery O2 Flow Rate FiO2 09/02/16 08:53 65 09/02/16 07:43 98.3 20 170/82 96 09/02/16 05:00 Room Air 08/31/16 06:50 2 Intake and Output 09/01/16 09/01/16 09/02/16 15:00 23:00 07:00 Intake Total 720 ml 400 ml Balance 720 ml 400 ml Exam Review of Systems: CONSTITUTIONAL: No fevers, chills. PULMONARY: No sob CARDIOVASCULAR: intermittent chest pain GASTROINTESTINAL: No nausea/vomiting. GENITOURINARY: No hematuria/dysuria. MUSCULOSKELETAL: No myagias/arthalgias. PSYCHIATRIC: The patient denies depression. NEUROLOGIC: No weakness Constitutional: alert, oriented Psych: no complaints Head: normocephalic ENMT: mucosa pink and moist Neck: jvd (8-9 cm water), supple Respiratory: clear to auscultation Cardiovascular: regular rate and rhythm Gastrointestinal: non-tender, soft Musculoskeletal: muscle tone (normal) Extremities: edema (none) Neurological: other (No focal deficits) Results Result Diagram: 09/01/16 0606 09/01/16 0606 Results 24 hrs Laboratory Tests Test 09/01/16 16:59 09/01/16 20:11 09/02/16 08:05 Bedside Glucose 126 135 146 Medications Medications Current Medications Amiodarone HCl (Cordarone) 200 mg BID PO Last administered on 09/02/16t 08:08; Admin Dose 200 MG; Start 08/31/16 at 21:00 Amlodipine Besylate (Norvasc) 10 mg DAILY PO Last administered on 09/02/16 08: 08; Admin Dose 10 MG; Start 09/01/16 at 09:00 Atenolol (Tenormin) 25 mg BID PO Last administered on 09/02/16 08:07; Admin Dose 25 MG; Start 08/31/16 at 21:00 Clonazepam (Klonopin) 0.5 mg DAILY PRN PO ANXIETY; Start 08/31/16 at 11:30 Hydrochlorothiazide (Hydrochlorothiazide) 25 mg DAILY PO Last administered on 08:08; Admin Dose 25 MG; Start 09/01/16 at 09:00 Loratadine (Claritin) 10 mg DAILY PO Last administered on 09/02/16 08:08; Admin Dose 10 MG; Start 09/01/16 at 09:00 Phenytoin (Dilantin) 100 mg QID PO Last administered on 09/01/16 21:24; Admin Dose 100 MG; Start 08/31/16 at 13:00 Tamsulosin HCl (Flomax) 0.4 mg QHS PO Last administered on 09/01/16 21:24; Admin Dose 0.4 MG; Start 08/31/16 at 21:00 Ondansetron HCl (Zofran Inj) 4 mg Q6H PRN IV NAUSEA AND/OR VOMITING; Start 08/31 at 11:30 Aspirin (Aspirin) 81 mg DAILY PO Last administered on 09/02/16 08:07; Admin Dose 81 MG; Start 09/01/16 at 09:00 Acetaminophen (Tylenol Tab) 650 mg Q6H PRN PO PAIN LEVEL 1-3 OR FEVER; Start at 11:30 Morphine Sulfate (morphine) 2 mg Q4H PRN IV PAIN LEVEL 7-10; Start 08/31/16 at 11:30 Enoxaparin Sodium (Lovenox) 30 mg DAILY SC Last administered on 09/02/16 08:10 ; Admin Dose 30 MG; Start 09/01/16 at 09:00 Miscellaneous Information 1 ea NOTE XX ; Start 08/31/16 at 11:30 Glucose (Glutose) 15 gm Q15M PRN PO DECREASED GLUCOSE; Start 08/31/16 at 11:30 Glucose (Glutose) 22.5 gm Q15M PRN PO DECREASED GLUCOSE; Start 08/31/16 at 11:30 Dextrose (D50w Syringe) 25 ml Q15M PRN IV DECREASED GLUCOSE; Start 08/31/16 at 11:30 Dextrose (D50w Syringe) 50 ml Q15M PRN IV DECREASED GLUCOSE; Start 08/31/16 at 11:30 Glucagon (Glucagen) 1 mg Q15M PRN IM DECREASED GLUCOSE; Start 08/31/16 at 11:30 Glucose (Glutose) 15 gm Q15M PRN BUCCAL DECREASED GLUCOSE; Start 08/31/16 at 11: 30 Clonidine (Catapres) 0.2 mg DAILY PO Last administered on 09/02/16 08:08; Admin Dose 0.2 MG; Start 08/31/16 at 18:30 Famotidine (Pepcid) 20 mg Q12 PO Last administered on 09/02/16 08:09; Admin Dose 20 MG; Start 09/01/16 at 21:00 NIKI FERRER Sep 02, 2016 11:52
--- NOTE | 2016-09-02 13:19 | RADRPT ---
PROCEDURE: Lexiscan myocardial perfusion study CLINICAL INDICATION: 66 -year-old patient complaining of chest pain. TECHNIQUE: Lexiscan 0.4 mg intravenously separate acquisition gated myocardial perfusion SPECT usi ng Tc 99m Myoview 30.6 mCi intravenously at stress and Tc-99m Myoview, 10.2 mCi intravenously at res t was performed using the rest/stress sequence. Poststress Myoview SPECT images were obtained in th e supine position. COMPARISON: June 30 2012. FINDINGS: Perfusion images reveal a small to moderate size moderate in degree nonreversible perfusion defect i n the inferior and basal inferolateral eldridge. Lexiscan post stress gated SPECT images demonstrate mild hypokinesis of the left ventricle. IMPRESSION: 1. The type and distribution of the scintigraphic abnormalities are most consistent with a small to moderate-sized nonreversible perfusion defect in the inferior and basal inferolateral eldridge with no significant interval changes since the previous study. 2. Mild hypokinesis of the left ventricle. 3. The left ventricle ejection fraction at stress is 42% (prior EF was 57%). A call report was made to Dr Madrid at 01:17 p.m. on September 02 1016. RPTAT: HH .Zoila Brown MD, MD Date Time Electronically viewed and signed by .Zoila Brown MD, on 09/02/2016 13:19 .L/
[2016-09-02] MEDS: PANTOPRAZOLE (EC) 40 MG TAB PO SCH (17:06)
--- NOTE | 2016-09-02 17:30 | CARRPT ---
DATE OF PROCEDURE: 09/01/2016 BASELINE VITAL SIGNS AND ELECTROCARDIOGRAM: Pulse 63, blood pressure 165/86. TYPE OF PROCEDURE: Lexiscan cardiolite strress test INDICATIONS: Chest pain, assess for ischemia. BASELINE VITAL SIGNS: Pulse 63, blood pressure. Electrocardiogram normal sinus rhythm and a rate of 63, normal axis, normal intervals, isolated T-wave flattening in aVL. PROCEDURE: The patient underwent standard Lexiscan infusion protocol over 10 seconds followed by radiotracer. The patient's test was stopped due to completion of protocol. Maximal achieved blood pressure during the test 172/ 91. Maximal heart rate during the test 89. ELECTROCARDIOGRAM FINDINGS: The patient did not develop any new Lexiscan- induced ST or T-wave changes from baseline abnormalities. The patient had occasional PVCs, rare PACs. SYMPTOMS: The patient had complaints of chest pain during stress test that resolved in recovery. IMPRESSION: 1. No Lexiscan-induced ST or T-wave changes from baseline abnormalities diagnostic of cardiac ischemia. 2. Complaints of chest pain and shortness of breath during stress test that resolved in recovery. 3. Occasional premature ventricular contractions during stress testing. 4. Report of nuclear images to follow in separate dictation. Dictated By: NIKI MO/BRIAN Conf#: [id number] DID#: [id number] MTDD
--- NOTE | 2016-09-02 17:48 | PN ---
DATE: 09/02/2016 SUBJECTIVE: Follow up on 66-year-old male admitted with acute chest pain. Patient also stated that he sometimes have a burning sensation that radiates in the neck, which comes and goes, with no agit ating or alleviating factors. The patient currently denies any chest pain, denies shortness of marcello th. Patient is status post stress test earlier today. Denies any fever, nausea, vomiting. Patient stated that he had chest pain during the stress test. OBJECTIVE VITAL SIGNS: Temperature is 98.1, pulse is 72, blood pressure is 160/90, respiratory rate 20, oxyg en saturation 96% on room air. GENERAL: Well-developed, well-nourished male, currently is awake, alert. HEENT: Head is atraumatic, normocephalic. Pupils equal, round, reactive to light and accommodation . Oral mucosa is pink and moist. NECK: Supple, no cervical lymphadenopathy, no thyromegaly. LUNGS: Clear bilaterally. HEART: Normal S1, S2. No murmurs, gallops, clicks, rubs noted. ABDOMEN: Protuberant, soft. Bowel sounds present. EXTREMITIES: There is no edema, clubbing, cyanosis. SKIN: No rash, petechiae noted. NEUROLOGIC: The patient is awake, alert and oriented x4. No focal deficits noted. ASSESSMENT AND PLAN: 1. Chest pain. The patient is followed by Dr. Madrid in cardiology consultation. Cardiac enzymes negative x3. Status post Lexiscan. Continue aspirin and Lovenox. Continue to follow up cardiolog y recommendations. 2. Possible gastroesophageal reflux disease. Continue patient on Protonix. Dr. Irizarry is asked to see patient in gastroenterology consultation. 3. Hypertension. Continue Norvasc. 4. Amiodarone and atenolol. 5. Diabetes mellitus type 2. Continue metformin and NovoLog per sliding scale. The patient' s hemoglobin A1c is 7.3. 6. Continue Lovenox for deep venous thrombosis prophylaxis and Pepcid for peptic ulcer disease prop hylaxis. Further recommendations based on clinical course. Plan of care discussed with Dr. Fuller. Dictated By: TOMASA CALVO DEVELOPMENT[employer] MATHEMATICS PROFESSOR for KANU FULLER MD SR/NTS Conf#: [id number] [facility]#: [id number]
[2016-09-02] MEDS: TAMSULOSIN (SR) 0.4 MG CAP PO SCH (21:43)
[2016-09-03] VITALS (12 sets, daily range): BP systolic 114–165; BP diastolic 64–91; PULSE 57–72; RESP 17–20
[2016-09-03] MEDS: PANTOPRAZOLE (EC) 40 MG TAB PO SCH (06:22)
[2016-09-03 07:45] LABS: POTASSIUM 3.7 mmol/L (3.5-5.1)
[2016-09-03 07:48] LABS: CREATININE 0.94 mg/dl (0.61-1.24)
[2016-09-03 07:49] LABS: CALCIUM 9.1 mg/dl (8.4-10.2)
[2016-09-03 07:53] LABS: BASOPHILS % 0.4 % (0.0-2.0); EOSINOPHILS # 0.1 10^3/ul (0.0-0.5); EOSINOPHILS % 1.4 % (0.0-7.0); HEMATOCRIT 48.1 % (42.0-52.0); HEMOGLOBIN 16.5 g/dl (14.0-18.0); LYMPHOCYTES # 2.1 10^3/ul (0.8-2.9); LYMPHOCYTES % 23.9 % (15.0-51.0); MEAN CORPUSCULAR HEMOGLOBIN 29.4 pg (29.0-33.0); MEAN CORPUSCULAR HGB CONC 34.3 g/dl (32.0-37.0); MEAN CORPUSCULAR VOLUME 85.8 fl (82.0-101.0); MONOCYTE # 0.5 10^3/ul (0.3-0.9); MONOCYTES % 5.7 % (0.0-11.0); NEUTROPHILS % 68.6 % (39.0-77.0); PLATELET COUNT 250 10^3/UL (140-440); RED CELL DISTRIBUTION WIDTH 13.2 % (11.5-14.5); UNCORRECTED WBC 8.8 10^3/ul (4.8-10.8); WHITE BLOOD COUNT 8.8 10^3/ul (4.8-10.8)
[2016-09-03] MEDS: INSULIN ASPART [NOVOLOG] 3 ML PEN SC SCH ×2 (07:55→11:50)
[2016-09-03 08:00] LABS: CONDITION 1
[2016-09-03] MEDS: metFORMIN 500 MG TAB PO SCH (08:24)
[2016-09-03] MEDS: LORATADINE 10 MG TAB PO SCH (08:58)
[2016-09-03] MEDS: AMIODARONE 200 MG TAB PO SCH (08:58)
[2016-09-03] MEDS: ASPIRIN 81 MG TAB PO SCH (08:58)
[2016-09-03] MEDS: HYDROCHLOROTHIAZIDE 25 MG TAB PO SCH (08:59)
[2016-09-03] MEDS: PHENYTOIN 100 MG CAP PO SCH ×2 (08:59→13:00)
[2016-09-03] MEDS: AMLODIPINE 10 MG TAB PO SCH (08:59)
[2016-09-03] MEDS: ATENOLOL 25 MG TAB PO SCH (09:00)
[2016-09-03] MEDS: ENOXAPARIN 30 MG/0.3 ML SYG SC SCH (09:01)
--- NOTE | 2016-09-03 10:49 | CONS ---
Date/Time of Note Date/Time of Note DATE: 09/03/16 TIME: 10:46 Assessment/Plan Assessment/Plan Additional Assessment/Plan 1.Chest pain-negative troponin x 3 - s/p Stress test : . The type and distribution of the scintigraphic abnormalities are most consistent with a small to moderate-sized nonreversible perfusion defect in the inferior and basal inferolateral eldridge with no significant interval changes since the previous study. MED RX reasonable unless Class III angina. 2.HTN - well Rx, con't med rx. 3.HL - on RX. 4.DM - con't to keep euglycemic. 5. H/O cardiac arrythmia on amio - now in sinus. 6. CHF - 3. The left ventricle ejection fraction at stress is 42% (prior EF was 57%)- con't to keep euvolemic. Consultation Date/Type/Reason Admit Date/Time Aug 31, 2016 at 08:19 Initial Consult Date Type of Consultation: Cardiology Referring Provider: BOBBY DE LA CRUZ MD 24 HR Interval Summary Free Text/Dictation NO acute change - tolerated stress test well - med Rx for now- will martha Madrid. ROS: No fever, no chills, no nausea, no vomiting, no diarrhea/constipation No recent weight changes No chest pain, no PND, no orthopnea No dizziness, blurred vision No thirst, no heat or cold intolerance Exam/Review of Systems Vital Signs Vitals Vital Signs Date Time Temp Pulse Resp B/P Pulse Ox O2 Delivery O2 Flow Rate FiO2 09/03/16 08:30 72 09/03/16 07:53 98.5 20 149/91 96 09/02/16 05:00 Room Air 08/31/16 06:50 2 Intake and Output 09/02/16 09/02/16 09/03/16 15:00 23:00 07:00 Intake Total 160 ml 240 ml Balance 160 ml 240 ml Exam General: WN/WD/NAD, AOx 3 HEENT: Unicetric/atraumatic/EOMI (follow commands) NECK: JVD elevated, no thyromegaly Lymph: no lymphadenopathy HEART: regular with no S3, II/ systolic murmur at apex LUNGS: Coarse sounds ABD: soft, NT, ND, +BS : Intact Neuro: non focal SKIN: chronic changes EXT: trace edema Results Result Diagram: 2/7/17 0654 09/03/16 0654 Results 24 hrs Laboratory Tests Test 09/02/16 13:17 09/02/16 17:03 09/02/16 21:41 09/03/16 06:54 Bedside Glucose 114 159 141 Anion Gap 19 H Basophils # 0.0 Basophils % 0.4 Blood Morphology Comment Blood Urea Nitrogen 16 Calcium Level 9.1 Carbon Dioxide Level 28 Chloride Level 98 Creatinine 0.94 Eosinophils # 0.1 Eosinophils % 1.4 Glucose Level 142 Hematocrit 48.1 Hemoglobin 16.5 Lymphocytes # 2.1 Lymphocytes % 23.9 Mean Corpuscular Hemoglobin 29.4 Mean Corpuscular Hemoglobin Concent 34.3 Mean Corpuscular Volume 85.8 Mean Platelet Volume 7.0 L Monocytes # 0.5 Monocytes % 5.7 Neutrophils # 6.0 Neutrophils % 68.6 Nucleated Red Blood Cells # 0.0 Nucleated Red Blood Cells % 0.0 Platelet Count 250 Potassium Level 3.7 Red Blood Count 5.60 Red Cell Distribution Width 13.2 Sodium Level 141 White Blood Count 8.8 # Test 09/03/16 08:25 Bedside Glucose 149 Medications Medications Current Medications Amiodarone HCl (Cordarone) 200 mg BID PO Last administered on 09/03/16 08:58; Admin Dose 200 MG; Start 08/31/16 at 21:00 Amlodipine Besylate (Norvasc) 10 mg DAILY PO Last administered on 09/03/16 08: 59; Admin Dose 10 MG; Start 09/01/16 at 09:00 Atenolol (Tenormin) 25 mg BID PO Last administered on 09/03/16 09:00; Admin Dose 25 MG; Start 08/31/16 at 21:00 Clonazepam (Klonopin) 0.5 mg DAILY PRN PO ANXIETY; Start 08/31/16 at 11:30 Hydrochlorothiazide (Hydrochlorothiazide) 25 mg DAILY PO Last administered on 08:59; Admin Dose 25 MG; Start 09/01/16 at 09:00 Loratadine (Claritin) 10 mg DAILY PO Last administered on 09/03/16 08:58; Admin Dose 10 MG; Start 09/01/16 at 09:00 Phenytoin (Dilantin) 100 mg QID PO Last administered on 09/03/16 08:59; Admin Dose 100 MG; Start 08/31/16 at 13:00 Tamsulosin HCl (Flomax) 0.4 mg QHS PO Last administered on 09/02/16 21:43; Admin Dose 0.4 MG; Start 08/31/16 at 21:00 Ondansetron HCl (Zofran Inj) 4 mg Q6H PRN IV NAUSEA AND/OR VOMITING; Start 08/31 at 11:30 Aspirin (Aspirin) 81 mg DAILY PO Last administered on 09/03/16 08:58; Admin Dose 81 MG; Start 09/01/16 at 09:00 Acetaminophen (Tylenol Tab) 650 mg Q6H PRN PO PAIN LEVEL 1-3 OR FEVER; Start at 11:30 Morphine Sulfate (morphine) 2 mg Q4H PRN IV PAIN LEVEL 7-10; Start 08/31/16 at 11:30 Enoxaparin Sodium (Lovenox) 30 mg DAILY SC Last administered on 09/03/16 09:01 ; Admin Dose 30 MG; Start 09/01/16 at 09:00 Miscellaneous Information 1 ea NOTE XX ; Start 08/31/16 at 11:30 Glucose (Glutose) 15 gm Q15M PRN PO DECREASED GLUCOSE; Start 08/31/16 at 11:30 Glucose (Glutose) 22.5 gm Q15M PRN PO DECREASED GLUCOSE; Start 08/31/16 at 11:30 Dextrose (D50w Syringe) 25 ml Q15M PRN IV DECREASED GLUCOSE; Start 08/31/16 at 11:30 Dextrose (D50w Syringe) 50 ml Q15M PRN IV DECREASED GLUCOSE; Start 08/31/16 at 11:30 Glucagon (Glucagen) 1 mg Q15M PRN IM DECREASED GLUCOSE; Start 08/31/16 at 11:30 Glucose (Glutose) 15 gm Q15M PRN BUCCAL DECREASED GLUCOSE; Start 08/31/16 at 11: 30 Clonidine (Catapres) 0.2 mg DAILY PO Last administered on 09/03/16 06:25; Admin Dose 0.2 MG; Start 08/31/16 at 18:30 Pantoprazole (Protonix Tab) 40 mg BID@18 PO Last administered on 09/03/16 06 :22; Admin Dose 40 MG; Start 09/02/16 at 18:00 ROSY WALDEN MD Sep 03, 2016 10:49
[2016-09-03] MEDS ORDERED: hydrALAzine 20 MG INJ IV PRN (15:30)
== END 2016-09-03 18:05 | disposition home or self-care (01) | DRG 313 ==
LOC: E/R 01:41 → UNDOADMOB 08:19 → TEL 08:19 → OBSVTOIN 09-03 16:24
PROVIDERS: ADMIT Internal Medicine; ATTEND Internal Medicine
DX: R07.9 Chest pain, unspecified (principal); I50.9 Heart failure, unspecified; I10 Essential (primary) hypertension; E11.9 Type 2 diabetes mellitus without complications; E78.00 Pure hypercholesterolemia, unspecified; E66.9 Obesity, unspecified; Z68.32 Body mass index [BMI] 32.0-32.9, adult; Z79.4 Long term (current) use of insulin
CPT/HCPCS: 36415; 71010; 78452; 80048; 80053; 80061; 82550; 82553; 82962; 83036; 83880; 84484; 85025; 85610; 85730; 93005; 93017; 93306; G0378; A9500; A9505; J1650; J1815; J2785

== ENCOUNTER 2017-09-08 10:19 | Emergency (ER) | END 2017-09-08 15:51 | disposition home or self-care (01) ==

== ENCOUNTER 2018-10-30 07:12 | Observation (INO) | payer MEDICARE, BC ==
[~2018-10-30] VITALS: Ht 172.7 cm; Wt 112.9 kg
[2018-10-30] VITALS (40 sets, daily range): BP systolic 121–165; BP diastolic 68–105; PULSE 58–81; RESP 14–26; Ht 172.7 cm; Wt 112.9 kg
[~2018-10-30 07:12] MED LIST changes: +AMIO200T4 PO; +AMLO-147 PO; -AMLO-218 PO; +ASPI81TA52 PO; +ATEN-51 PO; -CLON-379 PO; +CLON0.2T5 PO; +CLON0.5T14 PO; -CLON1TAB3 PO; +DIAZEPAM 5 MG TAB PO SCH; +DIPHENHYDRAMINE 50 MG CAP PO SCH; -DOXA2TAB PO; +ERGO500013 PO; +FAMOTIDINE 20 MG TAB PO SCH; -FURO20TA3 PO; +GLYB2.5T2 PO; +HYDR25TA6 PO; +LORA10TA3 PO; +MAG PO; -MECL12.574 PO; -METF-382 PO; +METF500T24 PO; -OLME40TA14 PO; +SITA100T11 PO; -SITA100T8 PO; +SOD CHLORIDE 0.45% 1,000 ML IV SCH; +TAMS-14 PO; -TEN25 PO; -VALS160T20 PO
[2018-10-30] MEDS ORDERED: ATEN50TA PO (08:48)
[2018-10-30] MEDS ORDERED: PHEN125O3 PO (08:48)
[2018-10-30] MEDS ORDERED: OLME5TAB4 PO (08:49)
[2018-10-30] MEDS ORDERED: IODIXANOL LOCM 100 ML BTL ONE (09:18)
[2018-10-30] MEDS ORDERED: LIDOCAINE 1% (MDV) 20 ML INJ ONE (09:18)
[2018-10-30] MEDS ORDERED: VERAPAMIL 5 MG INJ ONE (09:18)
[2018-10-30] MEDS ORDERED: HEPARIN 1000 UNITS/ML 10 ML INJ ONE (09:18)
[2018-10-30] MEDS ORDERED: FENTAnyl 50 MCG/ML VIAL ONE (09:18)
[2018-10-30] MEDS ORDERED: NITROGLYCERIN (IC) 100 MCG/ML INJ ONE (09:18)
[2018-10-30] MEDS ORDERED: MIDAZOLAM 1 MG/ML 2 ML INJ ONE (09:18)
[2018-10-30] MEDS ORDERED: TICAGRELOR 90 MG TABLET ONE (10:47)
[2018-10-30] MEDS ORDERED: ASPIRIN 325 MG TAB ONE (10:47)
[2018-10-30] MEDS ORDERED: SOD CHLORIDE 0.9% 1,000 ML IV SCH (11:11)
--- NOTE | 2018-10-30 11:12 | SIPON ---
Date/Time of Note Date/Time of Note DATE: 10/30/18 TIME: 11:11 Operative Report Preoperative Diagnosis 1.chest pain 2.abnl mpi Postoperative Diagnosis 1.obstructive cad s/p stent Operation/Procedure Performed 1.[facility] Surgeon see signature line hearing and speech assistant 1.Frank Anesthesia: moderate sedation Estimated blood loss: minimal Transfusion Required none Specimen none Grafts/Implants none Complications none NIKI FERRER Oct 30, 2018 11:12
[2018-10-30] MEDS ORDERED: AL HYDROX/MG HYDROX/SIMETH 30 ML CUP PO PRN (11:30)
[2018-10-30] MEDS ORDERED: ONDANSETRON 4 MG INJ IV PRN (11:30)
[2018-10-30] MEDS ORDERED: ZOLPIDEM 5 MG TAB PO PRN (11:30)
[2018-10-30] MEDS ORDERED: morphine 2 MG INJ IV PRN (11:30)
[2018-10-30] MEDS ORDERED: OXYCODONE/ACETAMINOPHEN (5/325) TAB PO PRN (11:30)
[2018-10-30] MEDS ORDERED: ACETAMINOPHEN 325 MG TAB PO PRN (11:30)
--- NOTE | 2018-10-30 14:26 | RADRPT ---
Vent Rate: 61 bpm RR Interval: 0 msec MI Interval: 164 msec QRS Duration: 102 msec QT Interval: 452 msec QTC Interval: 455 msec P-R-T [place]: 63 - 51 - 50 degrees Normal sinus rhythm Possible Left atrial enlargement Borderline ECG Electronically Signed By: Tim Guido
[2018-10-30] MEDS ORDERED: clonAZEPAM 0.5 MG TAB PO PRN (19:30)
--- NOTE | 2018-10-30 19:37 | HP ---
Date/Time of Note Date/Time of Note DATE: 10/30/18 TIME: 19:27 Assessment/Plan VTE Prophylaxis SCD contraindicated: other Pharmacological prophylaxis: other Pharm contraindication: other Lines/Catheters IV Catheter Type (from Nrsg): Peripheral IV Urinary Cath still in place: No Assessment/Plan Assessment/Plan -Chest pain r/o coronary artery disease- no chest pain at present. feels better. - per cardiology -Obstructive Coronary Artery Disease - SP STENT placement -SP Left Heart cath - per cardio -HTN- stable - Hyperlipemia - cont statin - DM - Glycemic control - Anxiety - on Clonopin - Asa - Ex SMOKER - Reinforce /provide smoking cessation Anticipate discharge tomorrow if stable and cleared by cardiology Patient seen inn collaboration with Dr Kaplan. Staff. Result Diagram: 10/30/18 0837 10/30/18 0838 Results 24hrs Laboratory Tests Test 10/30/18 08:07 10/30/18 08:37 10/30/18 08:38 10/30/18 11:36 Bedside Glucose 169 144 White Blood Count 8.0 Red Blood Count 5.47 Hemoglobin 15.6 Hematocrit 46.5 Mean Corpuscular Volume 85.0 Mean Corpuscular 28.5 L Hemoglobin Mean Corpuscular 33.5 Hemoglobin Concent Red Cell Distribution 13.2 Width Platelet Count 207 Mean Platelet Volume 8.7 # Immature Granulocytes % 0.400 Neutrophils % 66.8 Lymphocytes % 22.7 Monocytes % 7.6 Eosinophils % 1.9 Basophils % 0.6 Nucleated Red Blood 0.0 Cells % Immature Granulocytes # 0.030 Neutrophils # 5.3 Lymphocytes # 1.8 Monocytes # 0.6 Eosinophils # 0.2 Basophils # 0.1 Nucleated Red Blood 0.0 Cells # Prothrombin Time 13.4 Prothrombin Time Ratio 1.0 INR International 1.01 Normalized Ratio Activated 30.3 Partial Thromboplast Time Sodium Level 141 Potassium Level 3.5 Chloride Level 101 Carbon Dioxide Level 32 H Anion Gap 8 Blood Urea Nitrogen 17 Creatinine 0.81 Est Glomerular Filtrat > 60 Rate mL/min Glucose Level 162 Calcium Level 9.0 Triglycerides Level 208 H Cholesterol Level 217 H LDL Cholesterol, 144 Calculated HDL Cholesterol 31 Cholesterol/HDL Ratio 7.0 HPI/ROS Admit Date/Time Admit Date/Time Oct 30, 2018 at 14:02 ROS Mr. Hernnadez is a 68-year-old male patient with past history of diabetes mellitus, hypertension, dyslipidemia, prior tobacco intake, had complaints of substernal chest pain and underwent cardiac stress testing positive for anterior ischemia. Given these findings, patient had left heart catheterization to assess possibility of significant obstructive coronary artery disease with symptoms of chest pain and subsequent positive stress test findings.Patient is assessed in his room. Patient denies any chest pain, shortness of breadth, palpitations, headache, fever, focal weakness and numbness, any calf pain, abdominal pain , nausea/vomiting. Patient is admitted under Dr Kaplan. Plan of care staff and patent. . Eyes: no complaints ENT: no complaints Respiratory: no complaints Cardiovascular: no complaints Gastrointestinal: no complaints Genitourinary: no complaints Musculoskeletal: no complaints Skin: no complaints Neurologic: no complaints Endocrine: no complaints Lymphatic: no complaints Psychological: no complaints PMH/Family/Social Past Medical History Anxiety Medical History: diabetes, high cholesterol, hypertension Medications Current Medications Aspirin (Halfprin) 81 mg DAILY PO ; Start 10/31/18 at 09:00 Ticagrelor (Brilinta) 90 mg BID PO ; Start 10/30/18 at 21:00 Acetaminophen (Tylenol Tab) 650 mg Q4H PRN PO PAIN; Start 10/30/18 at 11:30 Oxycodone/ Acetaminophen (Percocet (5/ 325)) 1 tab Q4H PRN PO PAIN; Start 10/30/18 at 11:30 Morphine Sulfate (morphine) 1 mg Q1H PRN IV PAIN; Start 10/30/18 at 11:30 Zolpidem Tartrate (Ambien) 5 mg HS MAY REPEAT X 1 PRN PO INSOMNIA; Start 10/30/18 at 11:30 Al Hydrox/Mg Hydrox/Simethicone (Mag-Al Plus) 30 ml Q4H PRN PO GASTROINTESTINAL UPSET; Start 10/30/18 at 11:30 Ondansetron HCl (Zofran Inj) 4 mg Q4H PRN IV NAUSEA AND/OR VOMITING Last administered on 10/30/18at 12:44; Admin Dose 4 MG; Start 10/30/18 at 11:30 Sodium Chloride 1,000 ml @ 75 mls/hr [id number] IV Last administered on 10/30/18at 12:03; Admin Dose 75 MLS/HR; Start 10/30/18 at 11:11; Stop 10/31/18 at 00:30 Coded Allergies: No Known Allergy (Unverified , 10/30/18) Past Surgical History angiogram Past Surgical Hx: cholecystectomy Social History Alcohol Use: none Smoking Status: Current every day smoker Drug Use: none Exam/Review of Systems Vital Signs Vitals Vital Signs Date Temp Pulse Resp B/P (MAP) Pulse Ox O2 O2 Flow FiO2 Time Delivery Rate 10/30/18 69 16:14 10/30/18 97.8 18 136/87 92 Room Air 16:00 (103) Exam Constitutional: alert, oriented, well developed Psych: nl mood/affect Head: atraumatic Eyes: EOMI, nl lids, nl sclera ENMT: nl external ears & nose Neck: non-tender Respiratory: clear to auscultation Cardiovascular: nl pulses, other Gastrointestinal: soft, non-tender Musculoskeletal: nl extremities to inspection Extremities: normal pulses Neurological: nl mental status, nl speech Skin: nl turgor Lymph: nontender NIKOS BELTRAN Oct 30, 2018 19:37
[2018-10-30] MEDS ORDERED: DEXTROSE 50% 50 ML SYRINGE IV PRN ×2 (20:00)
[2018-10-30] MEDS ORDERED: GLUCOSE GEL 15 GRAM TUBE PO PRN ×2 (20:00)
[2018-10-30] MEDS ORDERED: GLUCOSE GEL 15 GRAM TUBE BUCCAL PRN (20:00)
[2018-10-30] MEDS ORDERED: GLUCAGON 1 MG INJ IM PRN (20:00)
[2018-10-30] MEDS: TICAGRELOR 90 MG TABLET PO SCH (21:00)
[2018-10-30] MEDS ORDERED: hydrALAzine 20 MG INJ IV PRN (21:30)
[2018-10-30] MEDS ORDERED: AMLODIPINE 10 MG TAB PO SCH (21:30)
[2018-10-30] MEDS: PHENYTOIN (25 MG/ML PO SYG) PO SCH (21:58)
[2018-10-30] MEDS: ATENOLOL 50 MG TAB PO SCH (21:58)
[2018-10-30] MEDS: INSULIN ASPART [NOVOLOG] 3 ML PEN SC SCH (22:52)
[2018-10-31] VITALS (9 sets, daily range): BP systolic 146–164; BP diastolic 83–87; PULSE 67–80; RESP 16–18
--- NOTE | 2018-10-31 00:11 | CARRPT ---
DATE OF PROCEDURE: 10/30/2018 TYPE OF PROCEDURE: 1. Left heart catheterization. 2. Coronary angiography. 3. Percutaneous transluminal coronary angioplasty with placement of Resolute drug-eluting stent x1 t o proximal LAD. 4. PTCA alone to diagonal branch midway through the lesion. 5. Measurement of left ventricular end-diastolic pressure. 6. Moderate conscious sedation. ATTENDING PHYSICIAN: Dr. Niki Madrid REFERRING PHYSICIAN: Self-referred. INDICATION: Chest pain refractory to medical therapy with positive stress test findings for anterior ischemia. TYPE OF ANESTHESIA: Conscious and local. BRIEF HISTORY AND HOSPITAL COURSE: Mr. Hernandez is a 68-year-old male with a history of hypertension, dyslipidemia, diabetes mellitus, prior tobacco intake, who initially presented with complaints of sub sternal chest pain and subsequently underwent cardiac stress testing positive for anterior ischemia. Given these findings, patient was referred for and presents today in order to undergo left heart cat heterization to assess possibility of significant obstructive coronary artery disease with symptoms o f chest pain and subsequent positive stress test findings. DESCRIPTION OF PROCEDURE: After informed consent was obtained, the patient was brought to the [facility] cardiac laborer shell[facility] processing where his right radial area was prepped and draped in the usu al sterile fashion. A 2% lidocaine was infiltrated into the right radial artery in order to achieve adequate local anesthesia. Using the modified Seldinger technique, the radial artery was cannulated and a 6-Spanish arterial egan th was placed. A 6-Spanish JL3.5 catheter was used to cannulate the left main coronary ostium. With contrast injection, multiple views of the left coronary system were obtained. JL3.5 was removed over a guidewire, and a JR4 was used to cannulate the right coronary arterial ostium. With contrast inje ction, multiple views of the right coronary system were obtained. JR4 was then used to cross the LV. LVEDP was measured and pullback across the aortic valve to assess for significant gradient which th ere was not. Subsequently at this time, given the findings of significant obstructive lesion in the patient's LAD, we moved directly to interventional procedure. The patient had ACT checked and was given 2000 units of additional heparin in order to achieve an adequate pre-interventional ACT. A Q3 guide was used to cannulate the left main coronary ostium. A 0.014 balance middleweight guidewire was passed distal to the lesion in the LAD. A second was placed into the diagonal. At this time, we did balloon infl ations into the ostium of the diagonal with a 2.0 x 12 mm balloon up to 12 to 14 atmospheres x3. Thi s was removed, and at this time, we did predilations within the LAD with a 3.0 x 20 mm balloon x3 to 4 episodes, 14 to 16. This was removed, and at this time, we stented the proximal LAD with a 3.5 x 34 mm drug-eluting stent up to 14 atmospheres and post dilated with the stent delivery system at 16 a tmospheres. Stent delivery balloon was removed. Followup angiogram was obtained, revealing excellen t result, deployment of stent, KATRINA 3 flow throughout the vessel, no signs of complication including perforation or dissection, and the patient's diagonal that bifurcated midway to the lesion also remai lam patent. On further imaging, the diagonal did remain patent but had a very significant plaque elías ft and had a proximal ostial 95% stenosis. Subsequently, the [employer] 50 guidewire was passed again acr oss the lesion into the diagonal, and balloon inflation was made with a 2.0 x 10 mm balloon x3 to 4 e pisodes at 10 each. Followup angiogram revealed an excellent result now with very minimal resi dual stenosis in the ostium of this vessel, no signs of complication including perforation or dissect ion, and ongoing KATRINA 3 flow throughout the LAD. Subsequently at this time, the interventional guide wires were removed and the patient was given 200 of IC nitroglycerin, and further followup angiogram was obtained revealing excellent result. At this time, the guides were removed. Subsequently, the p atient's sheath was removed. The TR band was applied. This completed the procedure. There were no noted complications. The patient was given 180 mg of Brilinta and 325 mg of aspirin. FINDINGS: Coronary angiography: Left main 4 mm, no significant stenosis. Circumflex proximally 3 m m vessel, has no significant focal stenosis. There are several proximal and mid branching obtuse mar ginals, all approximately 2.53 mm with no significant focal stenosis. The LAD proximally a 3.5 mm ve ssel, has a complex-appearing lesion up to approximately 90% to 95% in its proximal portion. There i s a proximal diagonal that bifurcates 2 mm with no significant focal stenosis, and a mid branching di agonal just in the mid portion of the lesion and has an ostial 90% stenosis. The remainder of the LA D thereafter is free from focal stenosis. The right coronary artery proximally is a 3 mm vessel and has mild luminal irregularities of 10% to 20%. It is a dominant vessel and gives off a 2 mm PDA and a 2.5 mm posterolateral branch with no significant focal stenosis. Measurement of LVEDP of 14 to 16, no significant aortic stenosis by gradient. PTCA AND STENT PLACEMENT: Prior to PTCA and stent placement, the patient had a 90% to 95% stenosis i n the mid LAD and a 90% to 95% ostial diagonal stenosis. Post PTCA and stent placement, the patient had no residual LAD stenosis and residual 30% diagonal ostial stenosis, KATRINA 3 flow of the vessel, no signs of complication including perforation or dissection. TOTAL FLUOROSCOPY TIME: 23.7 TOTAL CONTRAST: 310 IMPRESSION: Single-vessel obstructive coronary artery disease involving left anterior descending and its daughter branch diagonal, status post successful percutaneous transluminal coronary angioplasty and stent placement with drug-eluting stent 3.5 x 34 mm to LAD and to diagonal. RECOMMENDATIONS: In light of procedural findings at this time, we would: 1. Maintain the patient on aspirin 81 mg 1 tab p.o. daily indefinitely. 2. Brilinta 90 mg 1 tab p.o. b.i.d. 3. Maximize medical management. 4. Aggressive risk factor reduction. 5. The patient will be admitted to the PACU and then to ICU with telemetry for post-catheterization observation and continued management of presenting symptoms. Dictated By: NIKI MO/BRIAN Conf#: [id number] DID#: [id number]
[2018-10-31] MEDS ORDERED: ACCU-CHEK XX SCH (02:00)
[2018-10-31] MEDS ORDERED: metFORMIN 500 MG TAB PO SCH (07:55)
[2018-10-31] MEDS: ATENOLOL 50 MG TAB PO SCH (08:30)
[2018-10-31] MEDS: TICAGRELOR 90 MG TABLET PO SCH (08:41)
[2018-10-31] MEDS: INSULIN ASPART [NOVOLOG] 3 ML PEN SC SCH ×2 (08:41→12:38)
[2018-10-31] MEDS ORDERED: ASPIRIN (EC) 81 MG TAB PO SCH (09:00)
[2018-10-31] MEDS ORDERED: AMLODIPINE 10 MG TAB PO SCH ×2 (09:00)
[2018-10-31] MEDS ORDERED: LOSARTAN 50 MG TAB PO SCH (09:00)
[2018-10-31] MEDS ORDERED: SPECIAL NON-STANDARD MEDICATION PO SCH (09:00)
[2018-10-31] MEDS ORDERED: ATENOLOL 50 MG TAB PO SCH ×2 (09:00)
[2018-10-31] MEDS: PHENYTOIN (25 MG/ML PO SYG) PO SCH (09:45)
--- NOTE | 2018-10-31 12:26 | PN ---
Date/Time of Note Date/Time of Note DATE: 10/31/18 TIME: 12:25 Assessment/Plan VTE Prophylaxis Risk score (from Ns)>0 risk: 5 SCD applied (from [facility]): No SCD contraindicated: other Pharmacological prophylaxis: LMWH Lines/Catheters IV Catheter Type (from Rust): Peripheral IV Urinary Cath still in place: No Assessment/Plan Hospital Course 1) CAD, chest pain - s/p PCI with stent - monitor Result Diagram: 10/31/18 0706 10/31/18 0706 Results 24hrs Laboratory Tests Test 10/30/18 22:02 10/31/18 02:34 10/31/18 07:06 10/31/18 08:27 Bedside Glucose 216 133 162 White Blood Count 9.5 Red Blood Count 5.31 Hemoglobin 14.9 Hematocrit 44.7 Mean Corpuscular Volume 84.2 Mean Corpuscular 28.1 L Hemoglobin Mean Corpuscular 33.3 Hemoglobin Concent Red Cell Distribution 13.2 Width Platelet Count 203 Mean Platelet Volume 9.2 Immature Granulocytes % 0.300 Neutrophils % 70.1 Lymphocytes % 19.4 Monocytes % 7.8 Eosinophils % 1.7 Basophils % 0.7 Nucleated Red Blood 0.0 Cells % Immature Granulocytes # 0.030 Neutrophils # 6.7 Lymphocytes # 1.8 Monocytes # 0.7 Eosinophils # 0.2 Basophils # 0.1 Nucleated Red Blood 0.0 Cells # Sodium Level 140 Potassium Level 3.4 L Chloride Level 103 Carbon Dioxide Level 30 Anion Gap 7 Blood Urea Nitrogen 12 Creatinine 0.73 Est Glomerular Filtrat > 60 Rate mL/min Glucose Level 156 Hemoglobin A1c 8.3 H Calcium Level 9.0 Test 10/31/18 11:47 Bedside Glucose 237 H Subjective 24 Hr Interval Summary Free Text/Dictation Patient complains of shortness of breath with exertion and some abdominal pain Exam/Review of Systems Exam Vitals Vital Signs Date Temp Pulse Resp B/P (MAP) Pulse Ox O2 O2 Flow FiO2 Time Delivery Rate 10/31/18 67 12:05 10/31/18 98.8 18 159/86 95 Room Air 11:44 (110) Intake and Output 10/30/18 10/30/18 10/31/18 1515:00 23:00 07:00 IntakeIntake Total 240 ml 1000 ml 800 ml OutputOutput Total 250 ml BalanceBalance -10 ml 1000 ml 800 ml Constitutional: well developed Head: normocephalic, atraumatic Neck: supple Respiratory: clear to auscultation Cardiovascular: regular rate and rhythm Gastrointestinal: soft, non-tender Extremities: normal pulses Results Results 24hrs Laboratory Tests Test 10/30/18 22:02 10/31/18 02:34 10/31/18 07:06 10/31/18 08:27 Bedside Glucose 216 133 162 White Blood Count 9.5 Red Blood Count 5.31 Hemoglobin 14.9 Hematocrit 44.7 Mean Corpuscular Volume 84.2 Mean Corpuscular 28.1 L Hemoglobin Mean Corpuscular 33.3 Hemoglobin Concent Red Cell Distribution 13.2 Width Platelet Count 203 Mean Platelet Volume 9.2 Immature Granulocytes % 0.300 Neutrophils % 70.1 Lymphocytes % 19.4 Monocytes % 7.8 Eosinophils % 1.7 Basophils % 0.7 Nucleated Red Blood 0.0 Cells % Immature Granulocytes # 0.030 Neutrophils # 6.7 Lymphocytes # 1.8 Monocytes # 0.7 Eosinophils # 0.2 Basophils # 0.1 Nucleated Red Blood 0.0 Cells # Sodium Level 140 Potassium Level 3.4 L Chloride Level 103 Carbon Dioxide Level 30 Anion Gap 7 Blood Urea Nitrogen 12 Creatinine 0.73 Est Glomerular Filtrat > 60 Rate mL/min Glucose Level 156 Hemoglobin A1c 8.3 H Calcium Level 9.0 Test 10/31/18 11:47 Bedside Glucose 237 H Medications Medication Current Medications Aspirin (Halfprin) 81 mg DAILY PO Last administered on 10/31/18at 08:29; Admin Dose 81 MG; Start 10/31/18 at 09:00 Ticagrelor (Brilinta) 90 mg BID PO Last administered on 10/31/18at 08:41; Admin Dose 90 MG; Start 10/30/18 at 21:00 Acetaminophen (Tylenol Tab) 650 mg Q4H PRN PO PAIN; Start 10/30/18 at 11:30 Oxycodone/ Acetaminophen (Percocet (5/ 325)) 1 tab Q4H PRN PO PAIN; Start 10/30/18 at 11:30 Morphine Sulfate (morphine) 1 mg Q1H PRN IV PAIN; Start 10/30/18 at 11:30 Zolpidem Tartrate (Ambien) 5 mg HS MAY REPEAT X 1 PRN PO INSOMNIA; Start 10/30/18 at 11:30 Al Hydrox/Mg Hydrox/Simethicone (Mag-Al Plus) 30 ml Q4H PRN PO GASTROINTESTINAL UPSET; Start 10/30/18 at 11:30 Ondansetron HCl (Zofran Inj) 4 mg Q4H PRN IV NAUSEA AND/OR VOMITING Last administered on 10/30/18at 12:44; Admin Dose 4 MG; Start 10/30/18 at 11:30 Clonazepam (Klonopin) 0.5 mg DAILY PRN PO ANXIETY; Start 10/30/18 at 19:30 Metformin HCl (Glucophage) 500 mg WITH BREAKFAST DINNE PO Last administered on 10/31/18at 08:29; Admin Dose 500 MG; Start 10/31/18 at 07:55 Phenytoin (Dilantin Susp (Ped)) 100 mg BID PO Last administered on 10/31/18at 09:45; Admin Dose 100 MG; Start 10/30/18 at 21:00 Diagnostic Test (Pha) (Accu-Chek) 1 ea 02 XX ; Start 10/31/18 at 02:00 Insulin Aspart (Novolog Insulin Pen) NOVOLOG *MILD* ALGORITHM WITH MEALS BEDTIME SC Last administered on 10/31/18at 08:41; Admin Dose 1 UNIT; Start at 21:00 Miscellaneous Information 1 ea NOTE XX ; Start 10/30/18 at 20:00 Glucose (Glutose) 15 gm Q15M PRN PO DECREASED GLUCOSE; Start 10/30/18 at 20:00 Glucose (Glutose) 22.5 gm Q15M PRN PO DECREASED GLUCOSE; Start 10/30/18 at 20:00 Dextrose (D50w Syringe) 25 ml Q15M PRN IV DECREASED GLUCOSE; Start 10/30/18 at 20:00 Dextrose (D50w Syringe) 50 ml Q15M PRN IV DECREASED GLUCOSE; Start 10/30/18 at 20:00 Glucagon (Glucagen) 1 mg Q15M PRN IM DECREASED GLUCOSE; Start 10/30/18 at 20:00 Glucose (Glutose) 15 gm Q15M PRN BUCCAL DECREASED GLUCOSE; Start 10/30/18 at 20:00 Hydralazine HCl (Apresoline) 10 mg Q4H PRN IV ELEVATED BLOOD PRESSURE; Start 10/30/18 at 21:30 Clonidine (Catapres) 0.1 mg Q4H PRN PO ELEVATED BLOOD PRESSURE; Start 10/30/18 at 21:30 Amlodipine Besylate (Norvasc) 10 mg HS PO Last administered on 10/30/18at 21:58; Admin Dose 10 MG; Start 10/30/18 at 21:30 Atenolol (Tenormin) 50 mg BID PO Last administered on 10/31/18at 08:30; Admin Dose 50 MG; Start 10/30/18 at 21:30 Losartan Potassium (Cozaar) 50 mg DAILY PO Last administered on 10/31/18at 08:30; Admin Dose 50 MG; Start 10/31/18 at 09:00 COOKIE MEYER Oct 31, 2018 12:26
--- NOTE | 2018-10-31 15:19 | CONS ---
Assessment/Plan Assessment/Plan Hospital Course (Demo Recall) IMP: 1.POD#1 s/p PTCA/stent 2.HTN-mildly elevated 3.HL 4.DM 5.anxiety Recc: -ambulate and if no chest pain then ok for d/c from cardiac standpoint -Will give scripts for asa/brilinta -Continue baseline anti-hypertensives with probable need to increase as outpatient -start statin -outpatient f/u 2 weeks Consultation Date/Type/Reason Admit Date/Time Oct 30, 2018 at 14:02 Initial Consult Date 10/30/18 Type of Consult Cardiology Reason for Consultation cad s/p stent Requesting Provider: KANU FULLER MD Date/Time of Note DATE: 10/31/18 TIME: 15:14 Exam/Review of Systems Vital Signs Vitals Vital Signs Date Temp Pulse Resp B/P (MAP) Pulse Ox O2 O2 Flow FiO2 Time Delivery Rate 10/31/18 67 12:05 10/31/18 98.8 18 159/86 95 Room Air 11:44 (110) Intake and Output 10/30/18 10/30/18 10/31/18 1515:00 23:00 07:00 IntakeIntake Total 240 ml 1000 ml 800 ml OutputOutput Total 250 ml BalanceBalance -10 ml 1000 ml 800 ml Exam Exam Review of Systems: CONSTITUTIONAL: No fevers, chills. PULMONARY: No sob CARDIOVASCULAR: No chest pain/palpitations GASTROINTESTINAL: No nausea/vomiting. GENITOURINARY: No hematuria/dysuria. MUSCULOSKELETAL: No myagias/arthalgias. PSYCHIATRIC: anxiety NEUROLOGIC: No weakness Constitutional: alert Psych: no complaints Head: normocephalic ENMT: mucosa pink and moist Neck: supple, jvd Respiratory: diminished breath sounds Cardiovascular: regular rate and rhythm Gastrointestinal: non-tender Musculoskeletal: muscle tone (normal) Extremities: edema (none) Labs Result Diagram: 10/31/18 0706 10/31/18 0706 Results 24hrs Laboratory Tests Test 10/30/18 22:02 10/31/18 02:34 10/31/18 07:06 10/31/18 08:27 Bedside Glucose 216 133 162 White Blood Count 9.5 Red Blood Count 5.31 Hemoglobin 14.9 Hematocrit 44.7 Mean Corpuscular Volume 84.2 Mean Corpuscular 28.1 L Hemoglobin Mean Corpuscular 33.3 Hemoglobin Concent Red Cell Distribution 13.2 Width Platelet Count 203 Mean Platelet Volume 9.2 Immature Granulocytes % 0.300 Neutrophils % 70.1 Lymphocytes % 19.4 Monocytes % 7.8 Eosinophils % 1.7 Basophils % 0.7 Nucleated Red Blood 0.0 Cells % Immature Granulocytes # 0.030 Neutrophils # 6.7 Lymphocytes # 1.8 Monocytes # 0.7 Eosinophils # 0.2 Basophils # 0.1 Nucleated Red Blood 0.0 Cells # Sodium Level 140 Potassium Level 3.4 L Chloride Level 103 Carbon Dioxide Level 30 Anion Gap 7 Blood Urea Nitrogen 12 Creatinine 0.73 Est Glomerular Filtrat > 60 Rate mL/min Glucose Level 156 Hemoglobin A1c 8.3 H Calcium Level 9.0 Test 10/31/18 11:47 Bedside Glucose 237 H Medications Medications Current Medications Aspirin (Halfprin) 81 mg DAILY PO Last administered on 10/31/18at 08:29; Admin Dose 81 MG; Start 10/31/18 at 09:00 Ticagrelor (Brilinta) 90 mg BID PO Last administered on 10/31/18at 08:41; Admin Dose 90 MG; Start 10/30/18 at 21:00 Acetaminophen (Tylenol Tab) 650 mg Q4H PRN PO PAIN; Start 10/30/18 at 11:30 Oxycodone/ Acetaminophen (Percocet (5/ 325)) 1 tab Q4H PRN PO PAIN; Start at 11:30 Morphine Sulfate (morphine) 1 mg Q1H PRN IV PAIN; Start 10/30/18 at 11:30 Zolpidem Tartrate (Ambien) 5 mg HS MAY REPEAT X 1 PRN PO INSOMNIA; Start 10/30/18 at 11:30 Al Hydrox/Mg Hydrox/Simethicone (Mag-Al Plus) 30 ml Q4H PRN PO GASTROINTESTINAL UPSET; Start 10/30/18 at 11:30 Ondansetron HCl (Zofran Inj) 4 mg Q4H PRN IV NAUSEA AND/OR VOMITING Last administered on 10/30/18at 12:44; Admin Dose 4 MG; Start 10/30/18 at 11:30 Clonazepam (Klonopin) 0.5 mg DAILY PRN PO ANXIETY; Start 10/30/18 at 19:30 Metformin HCl (Glucophage) 500 mg WITH BREAKFAST DINNE PO Last administered on 10/31/18at 08:29; Admin Dose 500 MG; Start 10/31/18 at 07:55 Phenytoin (Dilantin Susp (Ped)) 100 mg BID PO Last administered on 10/31/18at 09:45; Admin Dose 100 MG; Start 10/30/18 at 21:00 Diagnostic Test (Pha) (Accu-Chek) 1 ea 02 XX ; Start 10/31/18 at 02:00 Insulin Aspart (Novolog Insulin Pen) NOVOLOG *MILD* ALGORITHM WITH MEALS BEDTIME SC Last administered on 10/31/18at 12:38; Admin Dose 3 UNIT; Start 10/30/18 at 21:00 Miscellaneous Information 1 ea NOTE XX ; Start 10/30/18 at 20:00 Glucose (Glutose) 15 gm Q15M PRN PO DECREASED GLUCOSE; Start 10/30/18 at 20:00 Glucose (Glutose) 22.5 gm Q15M PRN PO DECREASED GLUCOSE; Start 10/30/18 at 20:00 Dextrose (D50w Syringe) 25 ml Q15M PRN IV DECREASED GLUCOSE; Start 10/30/18 at 20:00 Dextrose (D50w Syringe) 50 ml Q15M PRN IV DECREASED GLUCOSE; Start 10/30/18 at 20:00 Glucagon (Glucagen) 1 mg Q15M PRN IM DECREASED GLUCOSE; Start 10/30/18 at 20:00 Glucose (Glutose) 15 gm Q15M PRN BUCCAL DECREASED GLUCOSE; Start 10/30/18 at 20:00 Hydralazine HCl (Apresoline) 10 mg Q4H PRN IV ELEVATED BLOOD PRESSURE; Start 10/30/18 at 21:30 Clonidine (Catapres) 0.1 mg Q4H PRN PO ELEVATED BLOOD PRESSURE; Start 10/30/18 at 21:30 Amlodipine Besylate (Norvasc) 10 mg HS PO Last administered on 10/30/18at 21:58; Admin Dose 10 MG; Start 10/30/18 at 21:30 Atenolol (Tenormin) 50 mg BID PO Last administered on 10/31/18at 08:30; Admin Dose 50 MG; Start 10/30/18 at 21:30 Losartan Potassium (Cozaar) 50 mg DAILY PO Last administered on 10/31/18at 08:30; Admin Dose 50 MG; Start 10/31/18 at 09:00 NIKI FERRER Oct 31, 2018 15:19
--- NOTE | 2018-10-31 16:24 | DS ---
Date/Time of Note Date/Time of Note DATE: 10/31/18 TIME: 16:22 Discharge Summary Admission/Discharge Info Admit Date/Time Oct 30, 2018 at 14:02 Discharge Date/Time 10/31/18 Discharge Diagnosis 1) CAD, chest pain - s/p PCI with stent - monitor Patient Condition: Fair Consults Cardiology Procedures PCI with stent placement Hx of Present Illness patient with hypertension, diabetes comes in for treatment of coronary artery disease. Hospital Course patient with hypertension, diabetes comes in for treatment of coronary artery disease. Patient underwent angiogram with angioplasty and stent placement. Patient tolerated the procedure and when deemed stable per cardiology, he was sent home. 1) CAD, chest pain - s/p PCI with stent - monitor Home Meds Reported Medications Olmesartan Medoxomil (Benicar) 5 Mg Tablet, 10 MG PO DAILY, #60 TAB 10/30/18 Phenytoin* (Phenytoin*) 125 Mg/5 Ml Oral.susp, 100 MG PO BID for 30 Days, BOTTLE 10/30/18 Atenolol* (Atenolol*) 50 Mg Tablet, 50 MG PO DAILY, #30 TAB 10/30/18 Clonazepam* (Clonazepam*) 0.5 Mg Tablet, 0.5 MG PO DAILY PRN for ANXIETY, TAB 08/31/16 Amlodipine Besylate* (Amlodipine Besylate*) 10 Mg Tablet, 10 MG PO DAILY, #30 TAB 08/31/16 Metformin Hcl* (Metformin Hcl*) 500 Mg Tablet, 500 MG PO WITH BREAKFAST DINNE, #30 TAB 01/16/16 Sitagliptin* (Januvia*) 100 Mg Tablet, 100 MG PO DAILY, #30 TAB 01/16/16 Discontinued Reported Medications Amiodarone Hcl* (Amiodarone Hcl*) 200 Mg Tablet, 200 MG PO BID, #60 TAB 08/31/16 Clonidine Hcl* (Clonidine Hcl*) 0.2 Mg Tablet, 0.2 MG PO DAILY PRN for ELEVATED BLOOD PRESSURE, TAB 08/31/16 Glyburide* (Glyburide*) 2.5 Mg Tablet, 2.5 MG PO BID, #60 TAB 08/31/16 Ergocalciferol (Vitamin D2) (VITAMIN D2) 50,000 Unit Capsule, 45302 UNIT PO EVERY 7 DAYS, CAP 08/31/16 Mag Hydrox/Al Hydrox/Simeth (Mintox Plus Tablet Chewable) 1 Each Tab.chew, 1 EACH PO TID, TAB.CHEW 08/31/16 Phenytoin* Sodium Extended (Dilantin*) 100 Mg Capsule, 100 MG PO QID, CAP 08/31/16 Hydrochlorothiazide* (Hydrochlorothiazide*) 25 Mg Tab, 25 MG PO DAILY, #30 TAB 08/31/16 Atenolol* (Atenolol*) 25 Mg Tablet, 25 MG PO BID, #60 TAB 08/31/16 Aspirin (Low Dose Aspirin) 81 Mg Tablet.dr, 81 MG PO DAILY, #30 TAB 08/31/16 Loratadine* (Loratadine*) 10 Mg Tablet, 10 MG PO DAILY, #30 TAB 08/31/16 Tamsulosin Hcl* (Flomax*) 0.4 Mg Cap.er.24h, 0.4 MG PO DAILY, CAP 08/31/16 Fenofibrate, Micronized (Fenofibrate) 134 Mg Capsule, 134 MG PO DAILY, CAP 01/16/16 Primary Care Provider Not On Staff Doctor Pending Labs Laboratory Tests Test 10/30/18 22:02 10/31/18 02:34 10/31/18 07:06 10/31/18 08:27 Bedside 216 133 162 Glucose mg/dL (70-220) mg/dL (70-220) mg/dL (70-220) White Blood 9.5 Count 10^3/ul (4.8-1 0.8) Red Blood 5.31 Count 10^6/ul (4.70- 6.10) Hemoglobin 14.9 g/dl (14.0-18. 0) Hematocrit 44.7 % (42.0-52.0) Mean 84.2 Corpuscular fl (82.0-101.0 Volume ) Mean 28.1 Corpuscular pg (29.0-33.0) Hemoglobin Mean 33.3 Corpuscular g/dl (32.0-37. Hemoglobin Conc 0) ent Red Cell 13.2 Distribution % (11.5-14.5) Width Platelet Count 203 10^3/UL (140-4 15) Mean Platelet 9.2 Volume fl (7.4-10.4) Immature 0.300 Granulocytes % % (0.001-0.429 ) Neutrophils % 70.1 % (39.0-77.0) Lymphocytes % 19.4 % (15.0-51.0) Monocytes % 7.8 % (0.0-11.0) Eosinophils % 1.7 % (0.0-7.0) Basophils % 0.7 % (0.0-2.0) Nucleated Red 0.0 Blood Cells % /100WBC (0.0-0 .0) Immature 0.030 Granulocytes # 10^3/ul (0.0-0 .031) Neutrophils # 6.7 10^3/ul (1.6-7 .5) Lymphocytes # 1.8 10^3/ul (0.8-2 .9) Monocytes # 0.7 10^3/ul (0.3-0 .9) Eosinophils # 0.2 10^3/ul (0.0-0 .5) Basophils # 0.1 10^3/ul (0.0-0 .1) Nucleated Red 0.0 Blood Cells # 10^3/ul (0.0-0 .0) Sodium Level 140 mmol/L (135-14 4) Potassium 3.4 Level mmol/L (3.5-5. 1) Chloride Level 103 mmol/L (97-110 ) Carbon Dioxide 30 Level mmol/L (21-31) Anion Gap 7 (5-13) Blood Urea 12 Nitrogen mg/dl (7-20) Creatinine 0.73 mg/dl (0.61-1. 24) Est Glomerular > 60 Filtrat mL/min (>60) Rate mL/min Glucose Level 156 mg/dl (70-220) Hemoglobin A1c 8.3 % (0-5.9) Calcium Level 9.0 mg/dl (8.4-10. 2) Test 10/31/18 11:47 Bedside 237 Glucose mg/dL (70-220) COOKIE MEYER Oct 31, 2018 16:24
--- NOTE | 2018-11-05 13:09 | RADRPT ---
Vent Rate: 72 bpm RR Interval: 832 msec [place] Interval: 159 msec QRS Duration: 113 msec QT Interval: 425 msec QTC Interval: 466 msec P-R-T [place]: 62 - 55 - 44 degrees Sinus rhythm...normal P axis, V-rate 50- 99 Ventricular premature complex...V complex w/ short R-R interval Borderline intraventricular conduction delay...QRSd >112mS Electronically Signed By: Tim Guido
--- NOTE | 2018-11-05 13:16 | RADRPT ---
Vent Rate: 74 bpm RR Interval: 0 msec NM Interval: 158 msec QRS Duration: 104 msec QT Interval: 420 msec QTC Interval: 466 msec P-R-T [place]: 62 - 54 - 49 degrees Sinus rhythm with occasional premature ventricular complexes Otherwise normal ECG Electronically Signed By: Tim Guido
== END 2018-10-31 17:38 | disposition home or self-care (01) ==
LOC: SDS 07:12 → CCL 07:12 → SDS 11:05 → CCL 14:02 → REC 14:02 → TEL 15:49
PROVIDERS: ADMIT Internal Medicine; ATTEND Internal Medicine
DX: I25.10 Atherosclerotic heart disease of native coronary artery without angina pectoris (principal); I10 Essential (primary) hypertension; E78.5 Hyperlipidemia, unspecified; E11.9 Type 2 diabetes mellitus without complications; F41.9 Anxiety disorder, unspecified
CPT/HCPCS: 71045; 80048; 80061; 82962; 83036; 85025; 85610; 85730; 93005; 93458; C1725; C1876; C1887; C9600; G0378; J1644; J1815; J2250; J2405; J3010; Q9967